=== PATIENT | male | born 1970 | race Caucasian/White ===

== ENCOUNTER 2017-06-23 02:22 | Emergency (ER) | payer BC, SELFPAY ==
[2017-06-23] VITALS (7 sets, daily range): BP systolic 118–178; BP diastolic 72–98; PULSE 74–87; RESP 14–17; TEMP 36.4; O2SAT 97–99; BMI 35.2
--- NOTE | 2017-06-23 02:39 | EKG12_ITS ---
Test Reason : CP Blood Pressure : / mmHG Vent. Rate : 081 BPM Atrial Rate : 081 BPM P-R Int : 222 ms QRS Dur : 100 ms QT Int : 380 ms P-R-T Axes : 059 -52 034 degrees QTc Int : 441 ms Sinus rhythm with 1st degree A-V block Left axis deviation Low voltage QRS (limb leads) Poor R wave progression Abnormal ECG Confirmed by ALFA SCOTT, ALOK ([id number]), design editor MELODY SOUSA ([id number]) on 06/25/2017 1:18:47 PM Referred By: BRODY Confirmed By:ALOK GRIMM MD
[2017-06-23] MEDS: Aspirin 81 MG TAB.CHEW 324 MG PO (02:52)
--- NOTE | 2017-06-23 03:01 | RAD_ITS ---
STUDY: X-RAY CHEST REASON FOR EXAM: Male, 47 years old. Chest pain. TECHNIQUE: PA and lateral chest. COMPARISON: June 27, 2011. FINDINGS: The lungs are clear and expanded. There is no demonstrated pleural abnormality. Normal size heart. Normal mediastinum and evon. Normal visualized pulmonary arteries. Normal visualized aortic arch and descending thoracic aorta. Normal visualized thoracic spine. Normal visualized ribs, clavicles, and shoulders. There is no demonstrated abnormality of the visualized soft tissue structures of the upper abdomen. RAD/Chest PA and Lateral IMPRESSION: Normal x-ray examination of the chest. Electronically Signed: Kojo Elmore MD at 3:24 EST , Service support ,
[2017-06-23 03:05] LABS: Absolute Lymphocyte Count 3.51 X10^3/ul (0.83-4.51); Absolute Neutrophil Count 3.2 X10^3/uL (2.0-7.7); Basophil# 0.06 X10^3/uL; Basophil% 0.8 % (0-1); Eosinophil# 0.29 X10^3/uL; Eosinophils% 3.7 % (0-5); Hematocrit 45.8 % (40-54); Hemoglobin 15.7 g/dl (13.0-16.5); Lymphocyte # 3.51 X10^3/ul (4.0); Lymphocyte % 44.4 % (19-41); Mean Corp Hgb Conc 34.3 g/gl (32-36); Mean Corpuscular Hgb 28.4 pg (27.0-32.0); Mean Corpuscular Volume 82.8 fL (80-94); Monocyte# 0.78 X10^3/uL; Monocyte% 9.9 % (0-10); Neutrophil # 3.22 X10^3/uL (2.7-7.7); Neutrophil % 40.7 % (47-70); Platelet Count 249 K/mm3 (150-450); RBC Distribution Width CV 12.9 % (11.6-14.6); RBC Distribution Width SD 38.6 fl (35.1-43.9); Red Blood Count 5.53 M/mm3 (4.6-6.2); White Blood Count 7.9 K/mm3 (4.4-11.0)
[2017-06-23 03:06] LABS: POSITIVE COUNT NO; POSITIVE DIFFERENTIAL NO; POSITIVE MORPHOLOGY NO
[2017-06-23 03:10] LABS: Prothrombin Time (Protime)PT. 12.3 SECONDS (11.7-14.9)
[2017-06-23 03:11] LABS: Anion Gap 8 (5-15); BUN 16 mg/dL (7-18); BUN/Creat Ratio 14.2 RATIO (10-20); Chloride 100 mmol/L (98-107); Creatinine, Serum 1.13 mg/dL (0.70-1.30); EST Glomerular Filtration Rate 74 mL/min (>60); Est Glom Filt Rate - Afr Amer 89 mL/min (>60); Estimated Creatinine Clearance 82.55 ml/min; Glucose 355 mg/dL (74-106); Potassium 3.8 mmol/L (3.5-5.1); Sodium Level 136 mmol/L (136-145)
[2017-06-23 03:17] LABS: D-Dimer Quantitative (DVT/PE) < 0.27 FEU/ug/m (0.27-0.49)
--- NOTE | 2017-06-23 03:25 | ED.VISSUMM ---
- ER Visit Summary Date of Service: 06/23/17 Chief Complaint: [] Chest pain History of Present Illness: The patient is a 47 M [] complaining of left-sided chest pain without radiation. Patient denies diaphoresis. Patient denies shortness of breath. Reports symptoms started yesterday intermittently. Reports brief episodes of chest pain every 30 minutes. He reports waking up from sleep at 1:30 AM today approximately 2 hours ago with continuous chest pain without radiation. He reports having a negative stress test in 2010. Denies any known cardiac disease. Does report a history of hypertension, diabetes, cholesterol. Reports compliance with all his medication including the treatment for hypertension diabetes and hypercholesterolemia. Denies any DVT or PE risk factors. Denies smoking. Pain is 4 out of 10. Physical Examination: [] Afebrile, vital signs stable. Cardiovascular exam is regular rate and rhythm. Lungs are clear to auscultation. Abdomen is soft and nontender. No lower extremity edema. Test Results: [] CBC, BMP, troponin within normal limits. D-dimer negative. INR 1.0. EKG shows normal sinus rhythm, rate of 81 without ectopy or ischemic changes. Unchanged from previous EKG. Chest x-ray: Negative. The troponin: Negative. Repeat EKG: Normal sinus rhythm, rate of 69 without ischemic changes. Unchanged from previous EKG. Emergency Department Course and Treatment: [] ADDY risk score: 1 out of 7. Patient given aspirin and nitroglycerin upon arrival. Patient reports improvement after nitroglycerin. Patient reports complete resolution of chest pain. He did request a medication for headache after nitroglycerin. He was provided 800 mg orally of ibuprofen. Patient was counseled regarding his diagnostic and laboratory findings. He represents a very low risk for cardiac event based off his ADDY risk score and current workup and evaluation. Patient is amenable to discharge with instructions for close follow-up with his PCP to schedule an outpatient stress test. Patient was explicitly instructed to return should he have any further discomfort. Treatment Plan: [] Follow-up with PCP, set up outpatient stress test. Disposition: [] Discharge, stable. Impression: [] Chest pain, unknown etiology This note was generated with [employer] software. It may contain incorrect words, spelling, and punctuation that were not noted in review of the chart prior to signing ED Disposition - Plan for ED Patient: Chief Complaint: Chest Pain Referrals: Olivier Vigil MD [Primary Care Provider] -
[2017-06-23] MEDS: Ibuprofen 400 MG Tablet 800 MG PO (04:16)
--- NOTE | 2017-06-23 04:20 | ED.RN ---
PT STATES PAIN DOWN FROM 5/10 TO 2/10, DR. SKINNER MADE AWARE.
--- NOTE | 2017-06-23 04:21 | EKG12_ITS ---
Test Reason : REPEAT Blood Pressure : / mmHG Vent. Rate : 069 BPM Atrial Rate : 069 BPM P-R Int : 216 ms QRS Dur : 098 ms QT Int : 384 ms P-R-T Axes : 047 -46 017 degrees QTc Int : 411 ms Sinus rhythm with 1st degree A-V block Left axis deviation Low voltage QRS (limb leads) Poor R wave progression Abnormal ECG Confirmed by ALFA SCOTT, ALOK ([id number]), society editor MELODY SOUSA ([id number] on 06/25/2017 1:19:17 PM Referred By: BRODY Confirmed By:ALOK GRIMM MD
--- NOTE | 2017-06-23 05:01 | ED.DEP ---
ED Disposition - Plan for ED Patient: Disposition: Home or Assisted Living Chief Complaint: Chest Pain Instructions: ED Chest Pain Atypical Unkn Cause Referrals: Olivier Vigil MD [Primary Care Provider] - Additional Instructions: Speak with your physician about setting up an outpatient stress test.
--- NOTE | 2017-06-23 05:17 | ED.RN ---
IV DC'ED, CATHETER INTACT, SMALL GAUZE DRESSING PLACED. DISCHARGE INSTRUCTIONS GIVEN TO AND REVIEWED WITH PATIENT, PATIENT DENIES QUESTIONS OR CONCERNS AND VOICES UNDERSTANDING OF DISCHARGE INSTRUCTIONS. PT AMBULATES OUT OF ROOM WITHOUT DIFFICULTY.
== END 2017-06-23 05:18 | disposition home or self-care (01) ==
PROVIDERS: Emergency Provider Emergency Medicine; Family Provider Family Medicine; PCP Family Medicine
DX: R07.9 Chest pain, unspecified (principal); E11.9 Type 2 diabetes mellitus without complications; I10 Essential (primary) hypertension; E78.00 Pure hypercholesterolemia, unspecified
CPT/HCPCS: 71046; 80048; 84484; 85025; 85379; 85610; 93005; 99285; A4216

== ENCOUNTER → 2018-01-02 15:17 | Outpatient (CLI) | payer BC, SELFPAY | PROVIDERS: Family Provider Family Medicine; PCP Family Medicine; Visit Provider Family Medicine | DX: K57.92 Diverticulitis of intestine, part unspecified, without perforation or abscess without bleeding (principal) | CPT/HCPCS: 74177; Q9967 ==

== ENCOUNTER → 2018-01-29 08:57 | Outpatient (CLI) | payer BC, SELFPAY ==
[2018-01-29 10:08] LABS: Absolute Lymphocyte Count 2.36 X10^3/ul (0.83-4.51); Basophil# 0.03 X10^3/uL; Basophil% 0.5 % (0-1); Eosinophil# 0.19 X10^3/uL; Eosinophils% 3.1 % (0-5); Hematocrit 42.9 % (40-54); Hemoglobin 13.8 g/dl (13.0-16.5); Lymphocyte # 2.36 X10^3/ul (4.0); Lymphocyte % 38.9 % (19-41); Mean Corp Hgb Conc 32.2 g/gl (32-36); Mean Corpuscular Hgb 27.7 pg (27.0-32.0); Mean Platelet Vol. 10.3 fl (6.2-12.0); Monocyte# 0.47 X10^3/uL; Monocyte% 7.7 % (0-10); Neutrophil # 3.01 X10^3/uL (2.7-7.7); Neutrophil % 49.6 % (47-70); Platelet Count 221 K/mm3 (150-450); RBC Distribution Width CV 13.1 % (11.6-14.6); RBC Distribution Width SD 41.4 fl (35.1-43.9); Red Blood Count 4.99 M/mm3 (4.6-6.2); White Blood Count 6.1 K/mm3 (4.4-11.0)
[2018-01-29 10:20] LABS: POSITIVE COUNT NO; POSITIVE DIFFERENTIAL NO; POSITIVE MORPHOLOGY NO
[2018-01-29 10:33] LABS: ALB/GLOB Ratio 0.8 RATIO (0.9-2.4); AST(SGOT) 13 U/L (15-37); Alanine Aminotransfer ALT/SGPT 32 U/L (16-61); Albumin, Serum 3.4 g/dL (3.2-5.0); Alkaline Phosphatase 59 U/L (45-117); Anion Gap 8 (5-15); BUN 11 mg/dL (7-18); BUN/Creat Ratio 11.1 RATIO (10-20); Calcium,Total 8.5 mg/dL (8.5-10.1); Chloride 107 mmol/L (98-107); Cholesterol 107 mg/dL (200); Creatinine, Serum 0.99 mg/dL (0.70-1.30); EST Glomerular Filtration Rate 85 mL/min (>60); Est Glom Filt Rate - Afr Amer 103 mL/min (>60); Glucose 133 mg/dL (74-106); High Density Lipoprotein 39 mg/dL; Potassium 4.3 mmol/L (3.5-5.1); Protein, Total 7.4 g/dL (6.4-8.2); Sodium Level 139 mmol/L (136-145); Thyroid Stim Hormone (TSH) 1.49 uIU/mL (0.358-3.74); Triglycerides 108 mg/dL; Very Low Density Lipoprotein 22 mg/dL (5-40)
== END ==
PROVIDERS: Family Provider Family Medicine; PCP Family Medicine; Visit Provider Family Medicine
DX: E11.9 Type 2 diabetes mellitus without complications (principal); K57.92 Diverticulitis of intestine, part unspecified, without perforation or abscess without bleeding
CPT/HCPCS: 36415; 80053; 80061; 84443; 85025

== ENCOUNTER → 2019-02-21 08:31 | Outpatient (CLI) | payer OTHER, SELFPAY ==
[2017-06-23 02:23] VITALS: BMI 35.2
[2019-02-21 10:35] LABS: ALB/GLOB Ratio 1.1 RATIO (0.9-2.4); AST(SGOT) 15 U/L (15-37); Alanine Aminotransfer ALT/SGPT 38 U/L (16-61); Alkaline Phosphatase 74 U/L (45-117); Anion Gap 5 (5-15); BUN 14 mg/dL (7-18); BUN/Creat Ratio 14.7 RATIO (10-20); Calcium,Total 8.9 mg/dL (8.5-10.1); Chloride 106 mmol/L (98-107); Cholesterol 117 mg/dL (200); Creatinine, Serum 0.95 mg/dL (0.70-1.30); EST Glomerular Filtration Rate 89 mL/min (>60); Est Glom Filt Rate - Afr Amer 108 mL/min (>60); Globulin 3.6 g/dL (2.2-4.2); Glucose 136 mg/dL (74-106); High Density Lipoprotein 41 mg/dL; Potassium 4.9 mmol/L (3.5-5.1); Protein, Total 7.6 g/dL (6.4-8.2); Sodium Level 138 mmol/L (136-145); Triglycerides 129 mg/dL; Very Low Density Lipoprotein 26 mg/dL (5-40)
== END ==
PROVIDERS: Family Provider Family Medicine; PCP Family Medicine; Referring Provider Family Medicine; Visit Provider Family Medicine
DX: E11.9 Type 2 diabetes mellitus without complications (principal)
CPT/HCPCS: 36415; 80053; 80061

== ENCOUNTER → 2019-03-27 09:23 | Outpatient (CLI) | payer OTHER, SELFPAY ==
[2017-06-23 02:23] VITALS: BMI 35.2
[2019-03-27 09:26] LABS: Bacteria 0 SEEN /hpf (None Seen); Mucous, Urine 0 SEEN /hpf (<or=2+); Red Blood Cells-Urine 0 SEEN /hpf (0-5); Squamous Epithelial Cells - UA 0 SEEN /hpf (0-5); White Blood Cells 0 SEEN /hpf (0-5)
[2019-03-27 10:25] LABS: Color, Urine Yellow (Yellow); Glucose, Dipstick 1000 mg/dl (Normal); Ketone-Dipstick Negative (Negative); Leukocyte Esterase-Dipstick Negative /ul (Negative); Nitrite-Dipstick Negative (Negative); Occult Blood-Urine Negative /ul (Negative); Protein-Dipstick Negative (Negative); Specific Gravity, Urine 1.005 (1.002-1.030); Urine Bilirubin Dipstick Negative (Negative); Urine Clarity Clear (Clear); Urine Urobilinogen Normal (Normal); Urine pH 6.5 (5.0 - 8.0)
[2019-03-27 11:48] LABS: Chlamydia Trachomatis by PCR Negative (Negative); Probe Check PASS; Sample Adequacy Control PASS; Specimen Processing Control PASS
== END ==
PROVIDERS: Family Provider Family Medicine; PCP Family Medicine; Referring Provider Family Medicine; Visit Provider Nurse Practitioner Family
DX: N34.2 Other urethritis (principal)
CPT/HCPCS: 81001; 87086; 87491

== ENCOUNTER → 2020-02-02 09:18 | Outpatient (CLI) | payer BC, SELFPAY ==
[2017-06-23 02:23] VITALS: BMI 35.2
[2020-02-02 10:18] LABS: Vitamin B12 349 pg/mL (211-911)
[2020-02-02 10:26] LABS: AST(SGOT) 17 U/L (15-37); Alanine Aminotransfer ALT/SGPT 34 U/L (16-61); Albumin, Serum 3.6 g/dL (3.2-5.0); Alkaline Phosphatase 60 U/L (45-117); Anion Gap 6 (5-15); BUN 12 mg/dL (7-18); BUN/Creat Ratio 12.9 RATIO (10-20); Calcium,Total 8.8 mg/dL (8.5-10.1); Chloride 109 mmol/L (98-107); Cholesterol 115 mg/dL (200); Creatinine, Serum 0.93 mg/dL (0.70-1.30); EST Glomerular Filtration Rate 91 mL/min (>60); Est Glom Filt Rate - Afr Amer 110 mL/min (>60); Globulin 3.5 g/dL (2.2-4.2); Glucose 125 mg/dL (74-106); High Density Lipoprotein 44 mg/dL; PSA,Total - Annual Screen 0.69 ng/mL (0.00-4.00); Potassium 4.2 mmol/L (3.5-5.1); Protein, Total 7.1 g/dL (6.4-8.2); Sodium Level 142 mmol/L (136-145); Thyroid Stim Hormone (TSH) 2.18 uIU/mL (0.358-3.74); Triglycerides 106 mg/dL; Very Low Density Lipoprotein 21 mg/dL (5-40)
[2020-02-04 12:08] LABS: Testosterone, Free 8.81 ng/dL (5.00-21.00)
[2020-02-04 15:17] LABS: Testosterone, % Free 2.85 % (1.50-4.20); Testosterone, Total 309 ng/dL (264-916)
== END ==
PROVIDERS: PCP Family Medicine; Referring Provider Family Medicine; Visit Provider Family Medicine
DX: I10 Essential (primary) hypertension (principal); E78.5 Hyperlipidemia, unspecified; Z12.5 Encounter for screening for malignant neoplasm of prostate
CPT/HCPCS: 36415; 80053; 80061; 82607; 84153; 84402; 84403; 84443; G0103

== ENCOUNTER 2020-03-25 12:56 | Observation (INO) | payer BC, SELFPAY ==
[2020-03-25] VITALS (7 sets, daily range): BP systolic 135–160; BP diastolic 72–84; PULSE 65–85; RESP 14–20; TEMP 36.4–36.8; O2SAT 95–98; BMI 36.0; BMI 35.9
--- NOTE | 2020-03-25 13:13 | RAD_ITS ---
STUDY: X-RAY CHEST REASON FOR EXAM: Male, 50 years old. SHORTNESS OF BREATH X SEVERAL DAYS, INCREASING, CHEST PAIN L SIDE, DIZZINESS TECHNIQUE: Single AP portable view of the chest. COMPARISON: Comparison is made with prior study dated 06/23/2017. FINDINGS: EKG electrodes are seen. Hyperinflation. The lungs are clear. There is no demonstrated pleural abnormality. Normal size heart. Normal mediastinum and evon. Normal visualized pulmonary arteries. Normal visualized aortic arch and descending thoracic aorta. Normal visualized thoracic spine. Normal visualized ribs, clavicles, and shoulders. There is no demonstrated abnormality of the visualized soft tissue structures of the upper abdomen. RAD/Chest 1 View (Portable) IMPRESSION: Hyperinflation. Electronically Signed: Jose Marley, at 13:52 EST , Service support ,
--- NOTE | 2020-03-25 13:13 | EKG12_ITS ---
Test Reason : CP Blood Pressure : / mmHG Vent. Rate : 074 BPM Atrial Rate : 074 BPM P-R Int : 200 ms QRS Dur : 104 ms QT Int : 378 ms P-R-T Axes : 046 -45 018 degrees QTc Int : 419 ms Sinus rhythm with frequent Premature ventricular complexes Left axis deviation Poor R wave progression Inferior ME, age undetermined, cannot be excluded Abnormal ECG Confirmed by ALFA SCOTT, ALOK ([id number]), technical editor FLORENTINO CESPEDES ([id number]) on 03/26/2020 11:08:50 AM Referred By: LAXMI Confirmed By:ALOK GRIMM MD
--- NOTE | 2020-03-25 13:14 | ED.DCSUM_ITS ---
History of Present Illness Chief Complaint: Chest Pain Informant: Patient Onset: Today Current Severity: Mild Maximum Severity: Moderate Narrative: Patient presents secondary to dyspnea. Last weekend he states he felt very short of breath, worsened with exertion. He had no other URI symptoms at that time. Earlier this week he seemed to be feeling much better. Today he became more short of breath again with intermittent dizziness/lightheadedness and a burning sensation in his anterior chest with occasional sharp pain in his back. He does note significant shortness of breath with climbing a flight of steps. He states this has been gradually getting worse for quite some time. He denies any personal history of cardiac disease. Last stress test was approximately 8 or 9 years ago. He does have family history as well as diabetes, hypertension, and high cholesterol. - Past Medical History (1) Diabetes Status: Chronic (2) Hypertension Status: Chronic (3) High cholesterol Status: Chronic Past Medical History - Allergies and Home Meds Allergies/Adverse Reactions: Allergies No Known Allergies Allergy (Verified 06/23/17 02:25) Primary Care Physician: Olivier Vigil MD [Primary Care Provider] - Prior records reviewed: Yes Surgical History: vasectomy Lives: With Family Smoking Status: Never smoker Review of Systems General: Denies: Chills, Fever Eyes: Denies: Visual changes - bilaterally ENT: Denies: Bilateral ear pain Cardiovascular: Reports: Chest pain Respiratory: Reports: Dyspnea. Denies: Cough Gastrointestinal: Denies: Abdominal pain Musculoskeletal: Denies: Extremity Pain Neurological: Denies: Headache Hematologic: Denies: Easy bruising, Easy bleeding Allergy: Denies: Uticaria Physical Exam Vital Signs/Narrative: Vital Signs Temp Pulse Resp BP Pulse Ox 03/25/20 12:58 97.7 F L 82 20 H 160/84 H 97 Inital Vital Signs reviewed: Yes General: Well nourished, Well developed Head: Normocephalic ENT: Moist mucous membranes Neck: Supple Cardiovascular: Regular rate, Regular rhythm Respiratory: No distress, CTA bilaterally Abdomen: Soft, Nontender Extremities: Nontender, No edema Skin: Normal color Neurological: Alert, Oriented x3 Psychological: Normal affect Diagnostic/Tx/Re-eval Impressions Chest X-Ray 03/25/20 13:13 IMPRESSION: Hyperinflation. Electronically Signed: Jose Marley, at 13:52 EST , Service support , 03/25/20 13:13 Chest 1 View (Portable) [RAD] Stat Laboratory Results 03/25/20 03/25/20 03/25/20 13:00 13:03 13:03 WBC 8.2 RBC 5.31 Hgb 15.1 Hct 45.8 MCV 86.3 MCH 28.4 MCHC 33.0 RDW Std Deviation 39.7 RDW Coeff of Janelle 12.7 Plt Count 271 MPV 10.0 Immature Gran % (Auto) 0.500 Neut % (Auto) 49.7 Lymph % (Auto) 37.3 Letcher % (Auto) 9.2 Eos % (Auto) 2.7 Baso % (Auto) 0.6 Absolute Neuts (auto) 4.1 Absolute Lymphs (auto) 3.05 Nucleated RBC % 0 D-Dimer Quant (PE/DVT) <= 0.27 Sodium 140 Potassium 4.2 Chloride 106 Carbon Dioxide 30.0 Anion Gap 4 L BUN 12 Creatinine 1.15 Estim Creat Clear Calc 80.94 Est GFR (MDRD) Af Amer 86 Est GFR (MDRD) Non-Af 71 BUN/Creatinine Ratio 10.4 Glucose 169 H Calcium 9.6 Troponin I < 0.015 B-Natriuretic Peptide 03/25/20 13:03 WBC RBC Hgb Hct MCV MCH MCHC RDW Std Deviation RDW Coeff of Janelle Plt Count MPV Immature Gran % (Auto) Neut % (Auto) Lymph % (Auto) Letcher % (Auto) Eos % (Auto) Baso % (Auto) Absolute Neuts (auto) Absolute Lymphs (auto) Nucleated RBC % D-Dimer Quant (PE/DVT) Sodium Potassium Chloride Carbon Dioxide Anion Gap BUN Creatinine Estim Creat Clear Calc Est GFR (MDRD) Af Amer Est GFR (MDRD) Non-Af BUN/Creatinine Ratio Glucose Calcium Troponin I B-Natriuretic Peptide 27.1 - EKG Initial EKG Interpretation: Sinus Rhythm - Sinus at 74 with PVCs. No acute ischemia. - Medical Decision Making Patient given aspirin on arrival. Blood work at this time is unremarkable to negative D-dimer negative troponin. He does have multiple risk factors as well as family history. His symptoms are concerning. I will speak with hospitalist regarding observation overnight for cycling of cardiac enzymes and probable stress test in the morning. ED Disposition - Plan for ED Patient: Disposition: Acute Care [facility] Diagnosis: Chest pain Referrals: Olivier Vigil MD [Primary Care Provider] -
--- NOTE | 2020-03-25 13:22 | ED.RN ---
PER DR ARENAS ISOLATION NOT NEEDED
[2020-03-25] MEDS: Aspirin 81 MG TAB.CHEW 324 MG PO (13:23)
--- NOTE | 2020-03-25 13:33 | ED.RN ---
PER DR ARENAS, NO ISOLATION NEEDED
[2020-03-25 13:34] LABS: Absolute Lymphocyte Count 3.05 X10^3/uL (0.83-4.51); Absolute Neutrophil Count 4.1 X10^3/uL (2.0-7.7); Basophil# 0.05 X10^3/uL; Basophil% 0.6 % (0-1); D-Dimer Quantitative (DVT/PE) <= 0.27 FEU/ug/m (0.27-0.49); Eosinophil# 0.22 X10^3/uL; Eosinophils% 2.7 % (0-5); Hematocrit 45.8 % (40-54); Hemoglobin 15.1 g/dL (13.0-16.5); Lymphocyte # 3.05 X10^3/ul (4.0); Lymphocyte % 37.3 % (19-41); Mean Corpuscular Hgb 28.4 pg (27.0-32.0); Mean Corpuscular Volume 86.3 fL (80-94); Monocyte# 0.75 X10^3/uL; Monocyte% 9.2 % (0-10); NRBC Flagged by Analyzer 0 % (0-5); Neutrophil # 4.07 X10^3/uL (2.7-7.7); Neutrophil % 49.7 % (47-70); Platelet Count 271 K/mm3 (150-450); RBC Distribution Width CV 12.7 % (11.6-14.6); RBC Distribution Width SD 39.7 fl (35.1-43.9); Red Blood Count 5.31 M/mm3 (4.6-6.2); White Blood Count 8.2 K/mm3 (4.4-11.0)
[2020-03-25 13:52] LABS: BNP,B-Type NATRIURETIC PEPTIDE 27.1 pg/mL (0-100)
[2020-03-25 13:56] LABS: Anion Gap 4 (5-15); BUN 12 mg/dL (7-18); BUN/Creat Ratio 10.4 RATIO (10-20); Calcium,Total 9.6 mg/dL (8.5-10.1); Chloride 106 mmol/L (98-107); Creatinine, Serum 1.15 mg/dL (0.70-1.30); EST Glomerular Filtration Rate 71 mL/min (>60); Est Glom Filt Rate - Afr Amer 86 mL/min (>60); Estimated Creatinine Clearance 80.94 ml/min; Glucose 169 mg/dL (74-106); Potassium 4.2 mmol/L (3.5-5.1); Sodium Level 140 mmol/L (136-145)
--- NOTE | 2020-03-25 14:20 | NURSING ---
DR WALTERS FOR DR ARENAS
--- NOTE | 2020-03-25 14:29 | NURSING ---
PCU OBS FLORENTINO WALTERS
--- NOTE | 2020-03-25 14:40 | HP.PCM_ITS ---
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 Dyspnea has been exertional at times and intermittent. Has been associated with some burning in his chest. Today, patient was sitting up having breakfast and f elt dizzy. The pain radiates to his back. Denied any diaphoresis, nausea, vomiting, diarrhea. 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 She gets checked weekly and her most recent evaluation was negative. Patient's daughter at home is not sick. [] Past Medical History Past Medical History (Chronic Problems): Chronic Problems Diabetes (Chronic) Hypertension (Chronic) High cholesterol (Chronic) Allergies No Known Allergies Allergy (Verified 06/23/17 02:25) Home Medications: Ambulatory Orders Medication Instructions Recorded Atorvastatin Calcium [Lipitor] 20 mg PO DAILY 06/23/17 Metformin HCl [Glucophage Xr] 750 mg PO BID 06/23/17 Aspirin E.C. [Ecotrin] 81 mg PO DAILY@0630 03/25/20 Glimepiride [Amaryl] 4 mg PO DAILY 03/25/20 Lisinopril [Zestril] 10 mg PO DAILY 03/25/20 Pioglitazone [Actos] 15 mg PO DAILY 03/25/20 Surgical History: vasectomy Lives: With Family Smoking Status: Never smoker - *Family History Paternal History Items: Heart Disease Review of Systems Constitutional: Denies: Anorexia, Chills, Fever, Night Sweats Eyes: Denies: Blurred vision, Double vision HEENT: Denies: Head Aches, Sinus Congestion, Sinus Drainage Cardiovascular: Reports: Chest Pain. Denies: Palpitations Respiratory: Reports: Shortness of breath upon exertion Gastrointestinal: Denies: Abdominal Pain, Diarrhea, Nausea, Vomiting Musculoskeletal: Denies: Joint Pain, Joint Tenderness Hematologic/ Lymphatic: Denies: Hx of blood clot Comment: All review of systems were negative except as mentioned above in the history of present illness and the other review of systems. VTE Information - Inpt Only VTE Present on Admission: No VTE Mechan Device Prophylaxis: None VTE Pharm Prophylaxis ordered?: No Reason prophylaxis not ordered:: Treatment Not Indicated Patient Problems: Active and Suspected Problems Chest pain (Acute) - Physical Exam Vitals/I&O's: Vital Signs Temp Pulse Resp BP Pulse Ox 36.5 C L 82 20 H 160/84 H 97 03/25/20 12:58 03/25/20 12:58 03/25/20 12:58 03/25/20 12:58 03/25/20 12:58 Oxygen Delivery Method Room Air Weight: 117.2 kg Body Mass Index (BMI) 36.0 General: Alert, Cooperative, No apparent distress HEENT: Atraumatic, Normocephalic Neck: No Nodes, Thyroid Normal Size and Texture Lungs: Clear to auscultation, Normal air movement, No rhonchi, No wheeze, No rales Cardiovascular: Regular rate, Regular Rhythm, Normal S1, Normal S2, No murmurs Abdomen: Bowel Sounds Present, Soft, Non Tender, Non-Distended, No Hepato- splenomegaly Extremities: No edema, No Calf Tenderness Skin: No rashes, No breakdown Musculoskeletal: No Tenderness to Palpation of Joints or Extremities, No Muscle Wasting Psych/Mental Status: Normal Affect, Appropriate Laboratory Results 03/25/20 13:00: Sodium 140, Potassium 4.2, Chloride 106, Carbon Dioxide 30.0, Anion Gap 4 L, BUN 12, Creatinine 1.15, Estim Creat Clear Calc 80.94, Est GFR (MDRD) Af Amer 86, Est GFR (MDRD) Non-Af 71, BUN/Creatinine Ratio 10.4, Glucose 169 H, Calcium 9.6, Troponin I < 0.015 03/25/20 13:03: WBC 8.2, RBC 5.31, Hgb 15.1, Hct 45.8, MCV 86.3, MCH 28.4, MCHC 33.0, RDW Std Deviation 39.7, RDW Coeff of Janelle 12.7, Plt Count 271, MPV 10.0, Immature Gran % (Auto) 0.500, Neut % (Auto) 49.7, Lymph % (Auto) 37.3, Campbell % (Auto) 9.2, Eos % (Auto) 2.7, Baso % (Auto) 0.6, Absolute Neuts (auto) 4.1, Absolute Lymphs (auto) 3.05, Nucleated RBC % 0 03/25/20 13:03: D-Dimer Quant (PE/DVT) <= 0.27 03/25/20 13:03: B-Natriuretic Peptide 27.1 EKG reviewed and showed normal sinus rhythm with frequent PVCs. Telemetry reviewed and showed PVCs with compensatory pause. Patient was asymptomatic during these events. Chest x-ray personally reviewed and showed normal airways without any infiltrate, edema. Assessment/Plan All Active Problems Chest pain (Acute) PVC (premature ventricular contraction) (Acute) 1. Chest pain: ADDY score of 1, Shweta score of 81. Patient has risk factors with family history, diabetes, hypertension hyperlipidemia. Plan is to get a treadmill stress echocardiogram on the . Patient stated that he would be able to complete that test. Patient did receive aspirin in the emergency room and will continue on the floor. Cycle troponins, check fasting lipid panel in the morning. Patient also has some atypical symptoms primarily his symptoms were more dyspnea associated but did have chest pain. 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 2. Premature ventricular contractions: Patient asymptomatic but did have frequent PVCs. Potassium is normal, check magnesium level and replace if low. 3. Diabetes mellitus type 2: Continue with glimepiride and Metformin. Add sliding scale insulin. Check A1c. 4. VTE prophylaxis: Not indicated as patient is observation status. OBSV E&M: [id number] Initial observation care L2
--- NOTE | 2020-03-25 18:10 | EKG12_ITS ---
Test Reason : CP ADMIT Blood Pressure : / mmHG Vent. Rate : 073 BPM Atrial Rate : 073 BPM P-R Int : 200 ms QRS Dur : 104 ms QT Int : 392 ms P-R-T Axes : 040 -34 009 degrees QTc Int : 431 ms Sinus rhythm with frequent Premature ventricular complexes Left axis deviation Poor R- wave progression Abnormal ECG Confirmed by ALFA SCOTT, ALOK ([id number]), pictures editor ELADIO PORTER ([id number]) on 03/29/2020 1:30:29 PM Referred By: DR WALTERS Confirmed By:ALOK GRIMM MD
[2020-03-25 19:15] LABS: Bedside Glucose 159 mg/dL (70-110)
[2020-03-25 19:24] LABS: Magnesium 2.2 mg/dL (1.6-2.6)
[2020-03-25] MEDS: Atorvastatin Calcium 20 MG Tablet PO (22:03)
[2020-03-25 22:16] LABS: Bedside Glucose 250 mg/dL (70-110)
[2020-03-26 03:00] VITALS: PULSE 69
[2020-03-26 04:00] VITALS: BP 115/71; PULSE 78; RESP 16; TEMP 36.5; O2SAT 97
--- NOTE | 2020-03-26 05:00 | EKG12_ITS ---
Test Reason : AM EKG Blood Pressure : / mmHG Vent. Rate : 066 BPM Atrial Rate : 066 BPM P-R Int : 198 ms QRS Dur : 102 ms QT Int : 406 ms P-R-T Axes : 049 -39 013 degrees QTc Int : 425 ms Normal sinus rhythm Left axis deviation Poor R- wave progression Abnormal ECG Confirmed by ALFA SCOTT, ALOK ([id number]), editor dictionary ELADIO PORTER ([id number]) on 03/29/2020 1:29:17 PM Referred By: ROMEO Confirmed By:ALOK GRIMM MD
[2020-03-26 06:09] VITALS: BP 121/61; PULSE 74; RESP 16; TEMP 36.6; O2SAT 98
[2020-03-26] MEDS: Aspirin E.C. 81 MG Tablet PO (06:13)
[2020-03-26] MEDS: 0.9% Saline Lock 10 ML Syringe IV (06:13)
[2020-03-26] MEDS: Lisinopril 10 MG Tablet PO (06:13)
[2020-03-26 06:52] LABS: Cholesterol 120 mg/dL (200); High Density Lipoprotein 38 mg/dL; Thyroid Stim Hormone (TSH) 2.02 uIU/mL (0.358-3.74); Triglycerides 127 mg/dL; Very Low Density Lipoprotein 25 mg/dL (5-40)
[2020-03-26 06:56] LABS: Bedside Glucose 157 mg/dL (70-110)
[2020-03-26 07:16] VITALS: PULSE 77
[2020-03-26 07:16] LABS: Hemoglobin A1c 7.3 % (3.8-5.6)
--- NOTE | 2020-03-26 10:36 | STRESSREP ---
Stress Test Report Date: Procedure: Exercise tolerance test/imaging study Indications: Chest pain: Shortness of breath Consent: Per the patient Procedure: The patient exercised on a Drew protocol for 5 minutes and 33 seconds completing Stage I and 2 minutes and 33 seconds of Stage II achieving a peak heart rate of 148 bpm (87% predicted maximal heart rate) with a peak blood pressure 188/82 mmHg and a peak MET capacity of 7 METs. The baseline ECG demonstrated sinus rhythm; poor R wave progression; occasional PVC. The peak exercise ECG demonstrated no obvious ECG changes. There were occasional PVCs pretest and occasional PVCs/ventricular couplets during exercise and occasional PVCs during recovery. The functional capacity was considered average. There was no complaint of chest discomfort during exercise or recovery. The examination was discontinued secondary to dyspnea. Impression: 1. Technically adequate (percent predicted maximal heart rate greater than 85%) exercise tolerance test 2. Peak exercise ECG no obvious ECG changes 3. There were occasional PVCs pretest and occasional PVCs/ventricular couplets during exercise and occasional PVCs during recovery 4. Nuclear images pending Myocardial perfusion imaging study: Technique: The patient was injected with mCi of technetium 99m Cardiolite and subsequently rest SPECT Cardiolite nuclear imaging was obtained in the horizontal long, vertical long, and short axis views. The patient exercised on a Drew protocol for 5 minutes and 33 seconds completing Stage I and 2 minutes and 33 seconds of Stage II achieving a peak heart rate of 148 bpm (87% predicted maximal heart rate) with a peak blood pressure 188/82 mmHg and a peak MET capacity of 7 METs. The patient was injected with mCi of technetium 99m Cardiolite and subsequently stress SPECT Cardiolite nuclear imaging was obtained in the horizontal long, vertical long, and short axis views. A gated Cardiolite study at peak stress was obtained. Interpretation: Rest and stress SPECT Cardiolite nuclear imaging status post realignment, normalization, and attenuation correction, demonstrates the appearance at rest of a small area of subtle diminished tracer uptake in the mid/distal anteroseptal segments which status post stress appears to improve/normalize. There is similar type findings on the resting and stress polar map images. There is end systolic thickening and brightening. The gated Cardiolite study demonstrates myocardial thickening and inward wall motion. The reported LVEF is 65%. Impression: 1. Rest and stress SPECT Cardiolite nuclear imaging demonstrate myocardial perfusion changes at rest which appear to improve/normalize following stress appearing compatible shifting soft tissue attenuation/artifact with no myocardial perfusion changes considered diagnostic for associated stress-induced myocardial ischemia. 2. The gated Cardiolite study reports an LVEF of 65%. This note was generated with [email or web address] software. It may contain incorrect words, spelling, and punctuation that were not noted in checking the note before signing.
[2020-03-26 11:25] LABS: Bedside Glucose 113 mg/dL (70-110)
[2020-03-26] MEDS: Glimepiride 4 MG Tablet PO (11:46)
[2020-03-26] MEDS: Pioglitazone Hydrochloride 15 MG Tablet PO (11:46)
--- NOTE | 2020-03-26 12:10 | DCINST_ITS ---
- Discharge Diagnoses Current Active Problems: Current Active and Chronic Problems Diabetes (Chronic) Hypertension (Chronic) High cholesterol (Chronic) Chest pain (Acute) PVC (premature ventricular contraction) (Acute) You will use the following diet at home:: Calorie/Carbohydrate Controlled (specify 1200, 1400, etc) - 1800 anette / day, Cardiac Your food should be the consistency of: Regular Your liquids should be the consistency of: Regular/Thin Discharge Activity: Return to Normal Activity Additional Instructions: Talk to your doctor about having pulmonary function tests after you are discharged from the hospital. Allergies/Adverse Reactions: Allergies No Known Allergies Allergy (Verified 06/23/17 02:25) Medications to take at Discharge Atorvastatin Calcium [Lipitor] 20 mg PO DAILY 06/23/17 Metformin HCl [Glucophage Xr] 750 mg PO BID 06/23/17 Aspirin E.C. [Ecotrin] 81 mg PO DAILY@0630 03/25/20 Glimepiride [Amaryl] 4 mg PO DAILY 03/25/20 Lisinopril [Zestril] 10 mg PO DAILY 03/25/20 Pioglitazone [Actos] 15 mg PO DAILY 03/25/20 Primary Care Physician: Olivier Vigil MD [Primary Care Provider] - Please follow up with your Primary Care Physician in: 1-2 weeks Test Results: Test results from this visit will be discussed in further detail at your follow- up appointment, if applicable. Proposed Discharge Date: 03/26/20
--- NOTE | 2020-03-26 13:36 | DS.PCM_ITS ---
<Nate Yoon - Last Filed: 03/26/20 13:36> Discharge Date and Diagnosis - Problem List Patient Problems: Active and Suspected Problems Chest pain (Acute) PVC (premature ventricular contraction) (Acute) Date of Admission: 03/25/20 Date of Discharge: 03/26/20 - Primary Discharge Diagnosis Acute Problems: Active Problems Chest pain (Acute)-musculoskeletal Exertional dyspnea-suspected underlying lung disease Secondhand smoke exposure Type 2 diabetes, hypertension, hyperlipidemia - Secondary Discharge Diagnosis Chronic Problems: Chronic Problems Diabetes (Chronic) Hypertension (Chronic) High cholesterol (Chronic) Hospital Course and Treatment Imaging Results: 03/26/20 07:18 Nuclear Stress Test - Chemical [NM] Routine Impression: 1. Rest and stress SPECT Cardiolite nuclear imaging demonstrate myocardial perfusion changes at rest which appear to improve/normalize following stress appearing compatible shifting soft tissue attenuation/artifact with no myocardial perfusion changes considered diagnostic for associated stress-induced myocardial ischemia. 2. The gated Cardiolite study reports an LVEF of 65%. RAD/Chest 1 View (Portable) IMPRESSION: Hyperinflation. Operations: None Procedures: Stress test Summary of Care Provided: Hospital course: The patient is a 50 year old M with past medical history of type 2 diabetes, hypertension, hyperlipidemia, significant secondhand smoke exposure while growing up, who presented to the emergency room with complaints of exertional dyspnea and burning chest pain. Him to the emergency room was tested for COVID- 19 which was negative. He had a negative troponin, chest x-ray demonstrated hyperinflation of the lungs. EKG was unremarkable. He was admitted to the PCU for chest pain work-up. Troponin was cycled and remained negative. He underwent a stress test the following day which was negative for inducible ischemia. He had PVCs on telemetry. A1c was checked and was 7.3. Given his hyperinflation on chest x-ray and exertional dyspnea with significant secondhand smoke exposure during his life, I suspect he may have some underlying lung disease. I recommended that he follow-up with his PCP in 1 to 2 weeks in order to arrange to have pulmonary function testing as an outpatient. Patient was discharged home in stable condition. This patient was seen by Nate Yoon PA-C under the supervision of Doctor Woody. [] Patient Problems: Active and Suspected Problems Chest pain (Acute) PVC (premature ventricular contraction) (Acute) - Physical Exam Vitals/I&O's: Vital Signs Temp Pulse Resp BP Pulse Ox 97.9 F 77 16 121/61 H 98 03/26/20 06:09 03/26/20 07:16 03/26/20 06:09 03/26/20 06:09 03/26/20 06:09 Oxygen Delivery Method Room Air Weight: 250 lb Body Mass Index (BMI) 35.9 Intake and Output for Last 24 Hours 03/24/20 03/25/20 03/26/20 23:59 23:59 23:59 Intake Total 895 / 895 Balance 895 / 895 General: Alert, Oriented x3, Cooperative HEENT: Atraumatic, PERRLA, EOMI, Normocephalic Neck: Supple, No JVD, Negative Carotid Bruits Lungs: Clear to auscultation, Normal air movement Cardiovascular: Regular rate, No murmurs Abdomen: Bowel Sounds Present, Soft, Non Tender Extremities: No edema, Capillary Refill Less than 3 Seconds Skin: No rashes, No breakdown Musculoskeletal: No Tenderness to Palpation of Joints or Extremities Neurological: Cranial nerves II-XII grossly intact Psych/Mental Status: Normal Affect, Appropriate, Alert and oriented to time, place, person, mood and affect Laboratory Results 03/25/20 13:00: Sodium 140, Potassium 4.2, Chloride 106, Carbon Dioxide 30.0, Anion Gap 4 L, BUN 12, Creatinine 1.15, Estim Creat Clear Calc 80.94, Est GFR (MDRD) Af Amer 86, Est GFR (MDRD) Non-Af 71, BUN/Creatinine Ratio 10.4, Glucose 169 H, Calcium 9.6, Troponin I < 0.015 03/25/20 13:03: B-Natriuretic Peptide 27.1 03/25/20 14:40: COVID-19 (ALBERTO) Not Detected 03/25/20 18:44: POC Glucose 159 H 03/25/20 18:58: Magnesium 2.2 03/25/20 18:58: Troponin I < 0.015 03/25/20 21:33: Troponin I < 0.015 03/25/20 22:05: POC Glucose 250 H 03/26/20 05:11: Triglycerides 127, Cholesterol 120, LDL Cholesterol 57, VLDL Cholesterol 25, HDL Cholesterol 38 L, TSH 2.02 03/26/20 05:11: Hemoglobin A1c 7.3 H 03/26/20 06:49: POC Glucose 157 H 03/26/20 11:20: POC Glucose 113 H Discharge Diet: Low fat/ Low Cholesterol, 1800 Calorie Control Diet, 2000 mg Sodium Diet Discharge Activity: Return to Normal Activity Home Medications: Medications to take at Discharge Atorvastatin Calcium [Lipitor] 20 mg PO DAILY 06/23/17 Metformin HCl [Glucophage Xr] 750 mg PO BID 06/23/17 Aspirin E.C. [Ecotrin] 81 mg PO DAILY@0630 03/25/20 Glimepiride [Amaryl] 4 mg PO DAILY 03/25/20 Lisinopril [Zestril] 10 mg PO DAILY 03/25/20 Pioglitazone [Actos] 15 mg PO DAILY 03/25/20 Primary Care Physician: Olivier Vigil MD [Primary Care Provider] - Please follow up with your Primary Care Physician in: 1-2 weeks Disposition: Home Minutes spent on discharge:: 35 Patient Condition:: Stable Medical Necessity - Tobacco Use Smoking Status: Never smoker Meaningful Use Info Meaningful Use Diagnoses (Choose all that apply): None applicable <Paintsil,Mazon - Last Filed: 03/27/20 09:06> Discharge Date and Diagnosis - Primary Discharge Diagnosis Acute Problems: Active Problems Chest pain (Acute) PVC (premature ventricular contraction) (Acute) - Secondary Discharge Diagnosis Chronic Problems: Chronic Problems Diabetes (Chronic) Hypertension (Chronic) High cholesterol (Chronic) Hospital Course and Treatment Summary of Care Provided: This patient was seen in conjunction with MASSIEL Mike. I have independently interviewed and examined the patient and reviewed pertinent historical, laboratory, and other data. Please refer to MASSIEL Mike note for his patient's presentation, findings, and recommendations. I have reviewed and his note and concur with his documentation 50-year-old male with multiple cardiovascular risk factors including type II DM, hypertension, hyperlipidemia who comes in with complaints of shortness of breath and burning chest pain. Patient's work-up had included unremarkable EKG, and hyperinflation of the lungs, negative troponins. His COVID-19 test was negative. Patient was admitted to the PCU, his troponins were cycled and remained negative. He underwent a stress test that was negative. On the day of discharge, patient was seen and examined. We had a discussion with regards to the etiology of his progressive shortness of breath. I reassured him that it was unlikely to be secondary to his heart. I asked him to follow-up with his primary care doctor within 2 weeks. He was encouraged to keep himself hydrated. He was encouraged to discuss with his primary care doctor and get a lung function test done to evaluate his lungs. Physical Exam: Gen: Comfortble, not pale, not jaundiced CVS:HS I +II, regular, no murmurs RESP: CTA GI: BS present and normal, soft, nontender, no palpable organs EXT:No edema - Physical Exam Vitals/I&O's: Vital Signs Temp Pulse Resp BP Pulse Ox 97.9 F 77 16 121/61 H 98 03/26/20 06:09 03/26/20 07:16 03/26/20 06:09 03/26/20 06:09 03/26/20 06:09 Oxygen Delivery Method Room Air Weight: 113.398 kg Body Mass Index (BMI) 35.9 Intake and Output for Last 24 Hours 03/25/20 03/26/20 03/27/20 23:59 23:59 23:59 Intake Total 895 / 895 Balance 895 / 895 Laboratory Results 03/26/20 11:20: POC Glucose 113 H OBSV E&M: 29161 Observation care discharge
--- NOTE | 2020-03-26 14:04 | NURSING ---
Read and reviewed SN documentation
== END 2020-03-26 12:11 | disposition home or self-care (01) ==
LOC: ED 14:15 → PCU 14:42
PROVIDERS: Emergency Provider Emergency Medicine; PCP Family Medicine; Visit Provider Internal Medicine
DX: R07.89 Other chest pain (principal); I49.3 Ventricular premature depolarization; R06.02 Shortness of breath; E11.9 Type 2 diabetes mellitus without complications; I10 Essential (primary) hypertension; E78.5 Hyperlipidemia, unspecified; M54.9 Dorsalgia, unspecified; R42 Dizziness and giddiness; R06.09 Other forms of dyspnea; Z79.899 Other long term (current) drug therapy; Z79.82 Long term (current) use of aspirin; Z79.84 Long term (current) use of oral hypoglycemic drugs
CPT/HCPCS: 36415; 71045; 78452; 80048; 80061; 82962; 83036; 83735; 83880; 84443; 84484; 85025; 85379; 87635; 93005; 93017; 99218; 99285; A9500; A4216; G0378; U0002

== ENCOUNTER → 2020-04-20 09:38 | Outpatient (CLI) | payer BC, SELFPAY ==
[2020-03-25 18:27] VITALS: BMI 35.9
--- NOTE | 2020-04-20 16:31 | PFTCOMP ---
COMPLETE PULMONARY FUNCTION TEST INTERPRETATION Brief HPI: Patient is a 50 year old male, currently under the care of Dr. Vigil, who presents to [facility] for complete pulmonary function tests secondary to diagnosis of dyspnea. Respiratory therapist reports good effort and reproducible results. Interpretation: Forced expiration spirometry shows no large airways obstructive ventilatory defect with an FEV1 of 120% predicted. There is no significant bronchodilator response by strict ATS criteria. Spirograms are of good quality and plateau normally. The respiratory flow volume loop shows a normal pattern. Lung volumes by body plethysmography show an elevated total lung capacity at 6.01 L, 136% predicted. All other lung volumes are increased symmetrically. Diffusion capacity by carbon monoxide is normal at 103% predicted. The airway resistance is normal. No previous pulmonary function tests were available for review. Impression: These pulmonary function tests are grossly within normal limits. Consider bronchoprovocation challenge if asthma is being considered.
== END ==
PROVIDERS: PCP Family Medicine; Referring Provider Family Medicine; Visit Provider Family Medicine
DX: E11.9 Type 2 diabetes mellitus without complications (principal)
CPT/HCPCS: 94060; 94726; 94729

== ENCOUNTER 2020-09-26 13:34 | Day surgery (SDC) | payer BC, SELFPAY ==
[2020-03-25 18:27] VITALS: BMI 35.9
[2020-09-26] VITALS (8 sets, daily range): BP systolic 114–181; BP diastolic 68–121; PULSE 76–90; RESP 18–20; TEMP 36.1–37.1; O2SAT 20–100; BMI 35.9
--- NOTE | 2020-09-26 13:49 | EKG12_ITS ---
Test Reason : Blood Pressure : / mmHG Vent. Rate : 067 BPM Atrial Rate : 067 BPM P-R Int : 200 ms QRS Dur : 106 ms QT Int : 386 ms P-R-T Axes : 063 -40 023 degrees QTc Int : 407 ms Normal sinus rhythm Left axis deviation Abnormal ECG Confirmed by LIZA SCOTT, KERRI ([id number]), food expeditor FLORENTINO CESPEDES ([id number]) on 09/28/2020 9:12:11 AM Referred By: SONIDO/SOTO Confirmed By:KERRI DE JESUS MD
--- NOTE | 2020-09-26 14:04 | EDS_ITS ---
HPI History of Present Illness Chief Complaint: Abd Pain Informant: patient Onset/Context/Timing Onset: Today Context: Sudden Onset Timing: Continuous Current Severity: Severe Maximum Severity: Severe Narrative Narrative: The patient is a 50-year-old male with medical history significant for hypertension and diabetes who presents to the emergency department with rather acute onset abdominal pain. The patient states that he has been in his normal state of health. He states about an hour earlier, he had sudden onset, stabbing pain in his mid umbilical area. He states that he is never really had pain like this before. He has a history of diverticulitis, but states that this was lower. He denies fevers or chills. He denies nausea or vomiting. He is no history of abdominal surgery. Prior similar symptoms: No Recent Illness/[facility]ospital[facility]: [facility] Medical History (Updated 09/26/20 @ 14:39 by Melina Garcia) CPAP (continuous positive airway pressure) dependence Diabetes GERD (gastroesophageal reflux disease) Non-smoker Sleep apnea Home Medications atorvastatin 20 mg PO DAILY 06/23/17 [History Last Taken 09/26/20] metformin [Glucophage XR] 750 mg PO BID 06/23/17 [History Last Taken 09/26/20] aspirin 81 mg PO DAILY@0630 03/25/20 [History Last Taken 09/26/20] glimepiride 4 mg PO BID 03/25/20 [History Last Taken 09/26/20] lisinopril 10 mg PO DAILY 03/25/20 [History Last Taken 09/26/20] pioglitazone 15 mg PO DAILY 03/25/20 [History Last Taken 09/26/20] Allergy/AdvReac Type Severity Reaction Status Date / Time No Known Allergies Allergy Verified 09/26/20 13:38 Social History Smoking Status: Never smoker ROS ROS ED Constitutional Constitutional ED: Denies chills or fever(s) Eyes Eyes: Denies blurry vision or change in vision ENT ENT ED: Denies ear pain or sore throat Cardiovascular Cardiovascular: Denies chest pain or palpitations Respiratory/Chest Respiratory/Chest: Denies cough, dyspnea or dyspnea on exertion Gastrointestinal Gastrointestinal: Reports abdominal pain; Denies nausea or vomiting Genitourinary Genitourinary ED: Denies dysuria or urinary frequency Musculoskeletal Musculoskeletal: Denies arthralgias or myalgias Integumentary Denies rash Neurologic Neurologic: Denies headache(s) or paresthesias Psychiatric Psychiatric: Denies anxiety or depression Endocrine Endocrinology: Denies polydipsia or polyuria Allergic/Immunologic Allergic/Immunologic ED: Denies urticaria EXAM Physical Exam Const Vital Signs: 09/26/20 13:36 Temperature 97.8 F Temperature Source Temporal Pulse Rate 76 Respiratory Rate 18 Blood Pressure 181/121 H Blood Pressure Mean 141 Pulse Ox 99 Oxygen Delivery Method Room Air Positive well nourished and well developed General Appearance ED: well developed HEENT Reports normocephalic, head/scalp atraumatic and moist mucous membranes Eyes PERRL and EOMs intact bilaterally Neck no lymphadenopathy and supple General: Negative for tenderness Chest Wall inspection of chest normal Resp normal respiratory effort and clear to auscultation bilaterally Cardio regular rate, regular rhythm and no murmurs GI GI Narrative: Patient has incarcerated umbilical hernia that is very tender to palpation. Palpation: tender; Negative for guarding or rebound tenderness present Back/Spine no CVA tenderness Cervical Spine: Negative for cervical spine tenderness Thoracic Spine / Upper Back: Negative for thoracic spinal tenderness Extremity normal to inspection General Extremety ED: Negative for tenderness Neuro oriented x3 and CN's II-XII intact bilaterally Neuro Narrative: No focal deficits appreciated. Sensorium / Orientation: alert Psych mental status grossly normal Skin no rashes or lesions noted, no wounds and skin turgor normal MDM MDM MDM Narrative Medical decision making narrative: Patient presents with incarcerated umbilical hernia. He is markedly tender to palpation. IV was established and I did speak with general surgery on the patient's arrival. The patient was promptly evaluated by Dr. Garcia who thought that he would best be served going to the operating room for operative reduction. As he already has some skin changes, I do feel that this is very reasonable. The patient was covered with broad- spectrum antibiotics. He will be admitted to surgical service. Impression 1. Incarcerated umbilical hernia Lab Data Attestation: I reviewed the patient's lab results. Labs: Laboratory Results - last 24 hr 09/26/20 14:25 WBC 8.2 RBC 5.29 Hgb 14.5 Hct 45.1 MCV 85.3 MCH 27.4 MCHC 32.2 RDW Std Deviation 39.2 RDW Coeff of Janelle 12.7 Plt Count 290 MPV 9.4 Immature Gran % (Auto) 0.900 Neut % (Auto) 64.3 Lymph % (Auto) 24.0 Norton % (Auto) 8.0 Eos % (Auto) 2.3 Baso % (Auto) 0.5 Absolute Neuts (auto) 5.3 Absolute Lymphs (auto) 1.96 Nucleated RBC % 0 Radiography Chest X-Ray - ED: 1 View, Read by ED Physician, Normal, Heart, Lungs, Mediastinum and Bony Structures Discharge Plan Triage Chief Complaint: Abd Pain ED Provider: Ronaldo Santos Dx/Rx/DC Orders Primary Care Provider: Olivier Vigil
[2020-09-26] MEDS: Ondansetron 4 MG/2 ML Vial IV (14:24)
[2020-09-26] MEDS: Morphine 4 MG/ML Syringe IV (14:24)
[2020-09-26] MEDS: 0.9% Normal Saline 1,000 ML 1000 ML IV (14:24)
--- NOTE | 2020-09-26 14:29 | EX.PCM.CON.S ---
Assessment & Plan Assessment/Plan (1) Incarcerated umbilical hernia: PLAN: Plan will be to repair this incarcerated strangulated umbilical hernia. Going to repair this primarily patient understands that there is a 50-50 chance that he is going to have a recurrence at some point. Given the fact that he is not nauseated and he is still passing gas is unlikely that there is intestine located within this. However he does understand that there might be small bowel located here which could require further surgery to the intestines. Risk include bleeding infection blood clots heart attacks pneumonia strokes up to including . All questions asked were answered and the patient is willing to proceed. HPI Consult Data Date of Consult: 09/26/20 HPI Narrative HPI Narrative: IRIS OLEARY, is a 50 M who presents with medical history significant for hypertension and diabetes who presents to the emergency department with rather acute onset abdominal pain. The patient states that he has been in his normal state of health. He states about an hour earlier, he had sudden onset, stabbing pain in his mid umbilical area. He states that he is never really had pain like this before. He has a history of diverticulitis, but states that this was lower. He denies fevers or chills. He denies nausea or vomiting. He is no history of abdominal surgery. Prior similar symptoms: No Recent Illness/Hospitalization: No [facility] Home Medications atorvastatin 20 mg PO DAILY 06/23/17 [History Last Taken 03/25/20 06:30] metformin [Glucophage XR] 750 mg PO BID 06/23/17 [History Last Taken 03/25/20 06:30] aspirin 81 mg PO DAILY@0630 03/25/20 [History Last Taken 03/25/20 06:30] glimepiride 4 mg PO DAILY 03/25/20 [History Last Taken 03/25/20 06:30] lisinopril 10 mg PO DAILY 03/25/20 [History Last Taken 03/25/20 06:30] pioglitazone 15 mg PO DAILY 03/25/20 [History Last Taken 03/25/20 06:30] Allergy/AdvReac Type Severity Reaction Status Date / Time No Known Allergies Allergy Verified 09/26/20 13:38 Social History Smoking Status: Never smoker ROS Constitutional Constitutional: Denies anorexia or chills Eyes Eyes: Reports systems reviewed and no addt'l complaints, except as documented Cardiovascular Cardiovascular: Reports systems reviewed and no addt'l complaints, except as documented Respiratory/Chest Respiratory/Chest: Reports systems reviewed and no addt'l complaints, except as documented Gastrointestinal Gastrointestinal: Reports systems reviewed and no addt'l complaints, except as documented Genitourinary Genitourinary: Reports systems reviewed and no addt'l complaints, except as documented Musculoskeletal Musculoskeletal: Reports systems reviewed and no addt'l complaints, except as documented Physical Exam Const alert and oriented x3 HEENT normocephalic and head/scalp atraumatic Eyes PERRL and EOMs intact bilaterally Resp clear to auscultation bilaterally Cardio Rate: regular rate Rhythm: regular rhythm GI Palpation: tender periumbilical (Patient has an incarcerated strangulated umbilical hernia.) Lab / Micro Data Result Diagrams: 09/26/20 14:25 09/26/20 14:25
--- NOTE | 2020-09-26 14:31 | NURSING ---
DR SCOTT IN ER
[2020-09-26 14:40] LABS: Absolute Lymphocyte Count 1.96 X10^3/uL (0.83-4.51); Absolute Neutrophil Count 5.3 X10^3/uL (2.0-7.7); Basophil# 0.04 X10^3/uL; Basophil% 0.5 % (0-1); Eosinophil# 0.19 X10^3/uL; Eosinophils% 2.3 % (0-5); Hematocrit 45.1 % (40-54); Hemoglobin 14.5 g/dL (13.0-16.5); Lymphocyte # 1.96 X10^3/ul (0.83-4.51); Mean Corp Hgb Conc 32.2 g/dL (32-36); Mean Corpuscular Hgb 27.4 pg (27.0-32.0); Mean Corpuscular Volume 85.3 fL (80-94); Mean Platelet Vol. 9.4 fl (6.2-12.0); Monocyte# 0.65 X10^3/uL; NRBC Flagged by Analyzer 0 % (0-5); Neutrophil # 5.25 X10^3/uL (2.7-7.7); Neutrophil % 64.3 % (47-70); Platelet Count 290 K/mm3 (150-450); RBC Distribution Width CV 12.7 % (11.6-14.6); RBC Distribution Width SD 39.2 fl (35.1-43.9); Red Blood Count 5.29 M/mm3 (4.6-6.2); White Blood Count 8.2 K/mm3 (4.4-11.0)
--- NOTE | 2020-09-26 14:40 | RAD_ITS ---
EXAM: XR CHEST, 1 VIEW : 1970 CLINICAL INDICATION: pre-op, hernia repair TECHNIQUE: Frontal view of the chest. This report was created using [employer] report generation technology. COMPARISON: 03/25/2020 FINDINGS: LUNGS AND PLEURAL SPACES: Unremarkable. No consolidation or edema. No pneumothorax. No effusion. HEART: Unremarkable. Cardiac silhouette not enlarged. MEDIASTINUM: Central airways and mediastinal contour are unremarkable. BONES/JOINTS: Unremarkable. SOFT TISSUES: Unremarkable. RAD/Chest 1 View (Portable) IMPRESSION: No radiographic evidence of acute cardiopulmonary disease. at 1500 Reported and signed by: Casper Langston MD Electronically Signed: Casper Langston MD at 14:59 EDT Tel , Service support ,
[2020-09-26 14:52] LABS: AST(SGOT) 18 U/L (15-37); Alanine Aminotransfer ALT/SGPT 46 U/L (16-61); Albumin, Serum 3.9 g/dL (3.2-5.0); Alkaline Phosphatase 73 U/L (45-117); Anion Gap 6 (5-15); BUN 12 mg/dL (7-18); BUN/Creat Ratio 9.7 RATIO (10-20); Calcium,Total 9.3 mg/dL (8.5-10.1); Chloride 104 mmol/L (98-107); Creatinine, Serum 1.24 mg/dL (0.70-1.30); EST Glomerular Filtration Rate 65 mL/min (>60); Est Glom Filt Rate - Afr Amer 79 mL/min (>60); Estimated Creatinine Clearance 72.77 ml/min; Globulin 4.1 g/dL (2.2-4.2); Glucose 202 mg/dL (74-106); Potassium 4.2 mmol/L (3.5-5.1); Sodium Level 137 mmol/L (136-145)
[2020-09-26] MEDS: HYDROmorphone 1 MG/ML Syringe IV (14:56)
--- NOTE | 2020-09-26 15:01 | NURSING ---
SURGERY TYLER INCARCERATED HERNIA
--- NOTE | 2020-09-26 15:31 | ED.RN ---
REPORT WAS CALLED TO THE OR BY THIS RN.
[2020-09-26] MEDS: BUPIVACAINE LIPOSOME/PF 20 ML VIAL OPERA.SITE (15:55)
--- NOTE | 2020-09-26 16:13 | PCM.OPRPT ---
Problems Associated Problem List Diagnoses (1) Incarcerated umbilical hernia: Report of Operation Date of Procedure: 09/26/20 Pre-Operative Diagnosis: Incarcerated umbilical hernia Post-Operative Diagnosis: Same Surgery/Procedure Performed:: Repair of incarcerated umbilical hernia Surgeon: Rito Garcia engineer automated equipment: Sukhwinder Cervantes Type of Anesthesia: General Anesthesiologist: Darrell Yanez Specimen's removed: None Drains: None Estimated Blood Loss (mL): < 25 cc Description of Procedure: Patient was brought in the operating room. Placed in the supine position. Under excellent general endotracheal ovation abdomen was sterilely prepped and draped in usual fashion. Incarcerated umbilical hernia had spontaneously reduced. Local was injected curvilinear incision was made dissection was carried down to the fascia I dissected off the umbilicus from the hernia defect. The defect was only a centimeter and a half in length. I rereduced the hernia sac into its preperitoneal space it was not large enough for me to open this up and inspect underneath I truly believe that the incarcerated part was going to be is omentum and I decided that the best thing was not to do a general exploration on him. I closed the defect with 3 interrupted sutures of #1 Nurolon's. Exparel was injected in the subcutaneous tissues I brought the umbilicus back down to the fascia with a 2-0 Vicryl. Wound was then closed with deep dermal stitches of 3-0 Vicryl in a running 4-0 Monocryl. Steri-Strips were applied sterile dressings were applied and the patient tolerated the procedure well. Admit VTE Documentation VTE Present on Admission: No VTE Mechan Device Prophylaxis: SCD's Reason prophylaxis not ordered:: Treatment Not Indicated
[2020-09-26] MEDS: Lactated Ringers 1,000 ML 100 ML IV (16:15)
--- NOTE | 2020-09-26 16:16 | EX.PCM.DISCH ---
Discharge Instructions Procedure Hernia Diet Discharge Diet: Light diet - advance as tolerated Activity Discharge Activity: Return to Normal Activity, May Drive (when you are no longer taking narcotic pain medications.) and May Shower (with the bandage in place 1-2 days after surgery.) Lifting Restrictions: 20 pounds for 8 weeks. Additional Activity Instructions:: Climbing stairs is fine, walking is encouraged. Sitting in bed may be uncomfortable. Sitting up using your lateral muscles (sitting up sideways) is usually more comfortable. Do not drive, work heavy equipment of sign legal documents for 24 hours. If your hernia repair was an ingunial repair, you may have scrotal swelling, an ice pack and/or athletic support can provide more comfort. Pain medications may cause nausea, you should typically eat light foods as you take your pain medications. Pain medications may also cause constipation. If you have difficulty with this, discuss with your doctor. Dressing / Incision Call your doctor if your incision/area has: Continuous Slow Oozing, Sudden Increased Bleeding, Increased Pain/ Swelling, Increased Redness and Foul Smelling Discharge Call your doctor if you observe: Fever of 101 or Higher Suture Line Care: Avoid Pulling/Pushing and Avoid Pinching/Bending Additional Dressing/Incision Instructions:: Leave the operative bandage on for 2-3 days. When you remove the bandage, leave the steri-strips on place until your follow up appointment or they fall off. Follow Up Care Please Follow Up With: Mayra Guillory PA-C When: Call office to schedule an appointment to be seen in 7 days. Test Results: Test results from this visit will be discussed in further detail at your follow-up appointment, if applicable. Discharge Plan Admission Attending Provider: Rito Garcia Primary Care Provider: Olivier Vigil Instructions Patient Instructions: ED Chest Pain, Noncardiac Discharge Orders/Prescriptions Prescriptions: New oxycodone-acetaminophen [Percocet] 5-325 mg tablet 1 tab PO Q4H PRN (Reason: pain) 5 Days Qty: 20 RF: 0 Continued atorvastatin 20 MG tablet 20 mg PO DAILY RF: 0 metformin [Glucophage XR] 750 MG tablet extended release 24 hr 750 mg PO BID RF: 0 pioglitazone 15 MG tablet 15 mg PO DAILY RF: 0 glimepiride 4 MG tablet 4 mg PO BID RF: 0 aspirin 81 MG tablet 81 mg PO DAILY@0630 RF: 0 lisinopril 10 MG tablet 10 mg PO DAILY RF: 0 Referrals / Follow Up: Olivier Vigil MD [Primary Care Provider] - Mayra Guillory PA-C [PHYSICIAN MANAGER FRONT OFFICE] -
[2020-09-26 16:41] LABS: Bedside Glucose 189 mg/dL (70-110)
[2020-09-26] MEDS: Acetaminophen 325 MG Tablet PO (17:15)
[2020-09-26] MEDS: oxyCODONE 5 MG Tablet PO (17:18)
== END 2020-09-26 17:42 | disposition home or self-care (01) ==
LOC: ED 14:39 → SDC 14:44 → MS3 14:45
PROVIDERS: Emergency Provider Emergency Medicine; PCP Family Medicine; Visit Provider Surgery
PROC: (CPT 49587; principal; 2020-09-26 15:30)
DX: K42.0 Umbilical hernia with obstruction, without gangrene (principal); E11.9 Type 2 diabetes mellitus without complications; K21.9 Gastro-esophageal reflux disease without esophagitis; G47.30 Sleep apnea, unspecified; Z79.82 Long term (current) use of aspirin; Z79.84 Long term (current) use of oral hypoglycemic drugs
CPT/HCPCS: 49587; 71045; 80053; 82962; 85025; 87426; 93005; 99285; J7050; J7120; A4216; J2405

== ENCOUNTER → 2021-02-15 09:41 | Outpatient (CLI) | payer BC, SELFPAY ==
--- NOTE | 2021-02-15 09:46 | ECHOCS_ITS ---
Reason For Study: SOB Procedure This was a 2D Doppler, Color Flow transthoracic echocardiogram. Technically difficult due to patients body habitus. Contrast injection performed. The study was technically difficult. Contrast injection was performed. Exam performed in department. Left Ventricle Normal LV size. Left ventricular systolic function is normal. The estimated ejection fraction is 55 %. Transmitral doppler flow suggestive of impaired relaxation of left ventricle. No regional wall motion abnormalities noted. Right Ventricle Normal RV size. Normal systolic function. Atria Normal left atrium. Normal right atrium. No doppler evidence for ASD. Mitral Valve There is no mitral annular calcification. Normal mitral valve. Trivial mitral valve insufficiency. Tricuspid Valve Normal tricuspid valve. Trivial tricuspid valve insufficiency. Unable to estimate RV systolic pressure/pulmonary artery pressure due to technically difficult study. Aortic Valve Trisinus/trileaflet aortic valve. Normal aortic valve. Pulmonic Valve The pulmonic valve is not well visualized. Great Vessels The aortic root is not well visualized. Pericardium/Pleural No pericardial effusion. Medication 22 gauge I.V. with prn adaptor inserted into right arm. Diluted definity 2.4ml given slow IV push to enhance endocardial definition. MMode/2D Measurements & Calculations LVIDd: 4.3 cm IVSd: 1.1 cm LA dimension: 3.5 cm LVIDs: 2.4 cm LVPWd: 1.2 cm FS: 44.3 % LAV(MOD-bp): 41.8 ml LA A4 area: 16.3 cm2 RA A4 area: 11.2 cm2 LAV(MOD-bp) Indexed: 18.2 ml/m2 LAV(MOD-sp2): 41.5 ml LAV(MOD-sp4): 39.5 ml Time Measurements MV dec time: 0.28 sec Doppler Measurements & Calculations MV E max roberto: 43.1 cm/sec Lat Peak E' Roberto: 4.9 cm/sec Med Peak E' Roberto: 6.6 cm/sec MV A max roberto: 62.6 cm/sec E/E' lat: 8.8 E/E' med: 6.6 MV E/A: 0.69 MV V2 max: 68.3 cm/sec MV P1/2t max roberto: 50.2 cm/sec Ao V2 max: 110.4 cm/sec MV max P.9 mmHg MV P1/2t: 96.8 msec Ao max P.9 mmHg MV V2 mean: 38.1 cm/sec MV dec slope: 152.0 cm/sec2 MV mean P.68 mmHg MV V2 VTI: 15.1 cm MVA(P1/2t): 2.3 cm2 LV V1 max: 84.3 cm/sec PA V2 max: 95.3 cm/sec LV V1 max P.8 mmHg ECHO/Echo Complete W/ Contrast Interpretation Summary The study was technically difficult. Contrast injection was performed. Left ventricular systolic function is normal. The estimated ejection fraction is 55 %. Trivial mitral valve insufficiency. Trivial tricuspid valve insufficiency. Unable to estimate RV systolic pressure/pulmonary artery pressure due to techni allen difficult study. Transmitral doppler flow suggestive of impaired relaxation of left ventricle Ordering Physician: Olivier Vigil Referring Physician: Olivier Vigil Performed By: Flynn Orellana RCS
== END ==
PROVIDERS: PCP Family Medicine; Referring Provider Family Medicine; Visit Provider Family Medicine
DX: R06.02 Shortness of breath (principal)
CPT/HCPCS: 93306; Q9957; A4216; C8929; J3490

== ENCOUNTER → 2021-02-21 08:09 | Outpatient (CLI) | payer BC, SELFPAY ==
[2021-02-21 10:17] LABS: ALB/GLOB Ratio 0.9 RATIO (0.9-2.4); AST(SGOT) 18 U/L (15-37); Alanine Aminotransfer ALT/SGPT 47 U/L (16-61); Albumin, Serum 3.5 g/dL (3.2-5.0); Alkaline Phosphatase 81 U/L (45-117); Anion Gap 7 (5-15); BUN 12 mg/dL (7-18); BUN/Creat Ratio 10.9 RATIO (10-20); Calcium,Total 8.9 mg/dL (8.5-10.1); Chloride 105 mmol/L (98-107); Cholesterol 129 mg/dL (200); EST Glomerular Filtration Rate 75 mL/min (>60); Est Glom Filt Rate - Afr Amer 90 mL/min (>60); Globulin 4.1 g/dL (2.2-4.2); Glucose 206 mg/dL (74-106); High Density Lipoprotein 38 mg/dL; PSA,Total - Annual Screen 0.78 ng/mL (0.00-4.00); Potassium 4.3 mmol/L (3.5-5.1); Protein, Total 7.6 g/dL (6.4-8.2); Sodium Level 138 mmol/L (136-145); Thyroid Stim Hormone (TSH) 1.51 uIU/mL (0.358-3.74); Triglycerides 151 mg/dL; Very Low Density Lipoprotein 30 mg/dL (5-40)
== END ==
PROVIDERS: PCP Family Medicine; Visit Provider Family Medicine
DX: E11.9 Type 2 diabetes mellitus without complications (principal); Z12.5 Encounter for screening for malignant neoplasm of prostate
CPT/HCPCS: 36415; 80053; 80061; 84153; 84443; G0103

== ENCOUNTER 2021-06-20 03:01 | Emergency (ER) | payer BC, SELFPAY ==
[2021-06-20 03:04] VITALS: BP 141/88; PULSE 81; RESP 16; TEMP 35.6; O2SAT 100; BMI 36.8
[2021-06-20 03:07] VITALS: BP 141/88; PULSE 83; RESP 16; TEMP 35.6; O2SAT 100
--- NOTE | 2021-06-20 03:26 | CT_ITS ---
EXAM: CT HEAD WITHOUT INTRAVENOUS CONTRAST CLINICAL INDICATION: Paresthesia TECHNIQUE: Multiple axial images were obtained of the head without intravenous contrast. CTDIvol = ( 44.99 ) mGy, DLP = ( 832.67 ) mGycm This CT exam was performed using one or more of the following dose reduction techniques: automated exposure control, adjustment of the mA and/or kV according to patient size, and/or use of iterative reconstruction technique. This report was created using [employer] report generation technology. COMPARISON: None. FINDINGS: BRAIN AND EXTRA-AXIAL SPACES: Unremarkable. No intra- or extra-axial hemorrhage. No evidence of acute infarct. No intracranial mass or mass effect. There is preservation of the antunez/white matter interface. Posterior fossa structures are unremarkable. Ventricles are appropriate for age. No hydrocephalus. Basal cisterns are patent. BONES/JOINTS: No acute calvarial fracture. No discrete lytic or blastic abnormalities. SINUSES: Small air-fluid level involving the right maxillary sinus. Mild paranasal sinus mucosal thickening. MASTOID AIR CELLS: Mastoid air cells are clear. ORBITS: Visualized globes, extraocular muscles, optic nerves and retrobulbar fat appear unremarkable. CT/Brain/Head without Contrast IMPRESSION: 1. No acute intracranial pathology. 2. Acute on paranasal sinusitis is suspected. Electronically Signed: Seferino Cha MD at 3:53 EST ,
--- NOTE | 2021-06-20 03:27 | RAD_ITS ---
EXAM: XR CHEST, 2 VIEWS CLINICAL INDICATION: Chest pain TECHNIQUE: Frontal and lateral views of the chest. This report was created using [employer] report generation technology. COMPARISON: None. FINDINGS: LUNGS AND PLEURAL SPACES: Unremarkable. No consolidation or edema. No pneumothorax. No effusion. HEART: Unremarkable. Cardiac silhouette not enlarged. MEDIASTINUM: Central airways and mediastinal contour are unremarkable. BONES/JOINTS: Unremarkable. SOFT TISSUES: Unremarkable. RAD/Chest PA and Lateral IMPRESSION: No radiographic evidence of acute cardiopulmonary disease. Electronically Signed: Seferino Cha MD at 4:02 [facility] ,
--- NOTE | 2021-06-20 03:27 | EKG12_ITS ---
Test Reason : CP Blood Pressure : / mmHG Vent. Rate : 082 BPM Atrial Rate : 082 BPM P-R Int : 212 ms QRS Dur : 094 ms QT Int : 384 ms P-R-T Axes : 066 -42 022 degrees QTc Int : 448 ms Sinus rhythm with 1st degree A-V block Left axis deviation Abnormal ECG When compared with ECG of 26-SEP-2020 14:09, No significant change was found Confirmed by LIZA SCOTT, KERRI ([id number]), dictionary editor FLORENTINO CESPEDES ([id number]) on 06/23/2021 2:32:12 PM Referred By: KONSTANTIN Confirmed By:KERRI DE JESUS MD
[2021-06-20 03:42] LABS: Absolute Neutrophil Count 4.2 X10^3/uL (2.0-7.7); Basophil# 0.06 X10^3/uL; Basophil% 0.8 % (0-1); Eosinophil# 0.22 X10^3/uL; Eosinophils% 2.8 % (0-5); Hematocrit 44.2 % (40-54); Hemoglobin 14.3 g/dL (13.0-16.5); Lymphocyte % 32.9 % (19-41); Mean Corp Hgb Conc 32.4 g/dL (32-36); Mean Corpuscular Hgb 27.4 pg (27.0-32.0); Mean Corpuscular Volume 84.7 fL (80-94); Mean Platelet Vol. 11.4 fl (6.2-12.0); Monocyte# 0.81 X10^3/uL; Monocyte% 10.2 % (0-10); NRBC Flagged by Analyzer 0 % (0-5); Neutrophil # 4.17 X10^3/uL (2.7-7.7); Neutrophil % 52.7 % (47-70); POSITIVE COUNT YES; Platelet Count 186 K/mm3 (150-450); RBC Distribution Width CV 13.3 % (11.6-14.6); RBC Distribution Width SD 41.1 fl (35.1-43.9); Red Blood Count 5.22 M/mm3 (4.6-6.2); White Blood Count 7.9 K/mm3 (4.4-11.0)
[2021-06-20 03:43] LABS: Differential Indicated SCAN CRITERIA MET
--- NOTE | 2021-06-20 04:46 | EX.ED.DYSGE1 ---
HPI History of Present Illness Chief Complaint: Chest Other Narrative Narrative: Patient is a 51-year-old male who states last week he had a brief episode of numbness/tingling into his left arm. He states it resolved spontaneously after a few minutes. He states this evening he was sleeping when he awoke with that same sensation but this time essentially through his entire body. He states he did notice it in his chest as well and was concerned that this could be cardiac in nature and therefore comes in for evaluation. Patient denies any new medications nausea vomiting diarrhea or any other deficits associated with the paresthesias. [facility] Medical History (Updated 06/20/21 @ 04:[address] Seferino Catalan DO) CPAP (continuous positive airway pressure) dependence Diabetes GERD (gastroesophageal reflux disease) Non-smoker Sleep apnea Home Medications atorvastatin 20 mg PO DAILY 06/23/17 [History Last Taken 09/26/20] metformin [Glucophage XR] 750 mg PO BID 06/23/17 [History Last Taken 09/26/20] aspirin 81 mg PO DAILY@0630 03/25/20 [History Last Taken 09/26/20] glimepiride 4 mg PO BID 03/25/20 [History Last Taken 09/26/20] lisinopril 10 mg PO DAILY 03/25/20 [History Last Taken 09/26/20] pioglitazone 15 mg PO DAILY 03/25/20 [History Last Taken 09/26/20] dulaglutide [Trulicity] 0.75 mg SUBCUT QWEEK 06/20/21 [History Last Taken Unknown] Allergy/AdvReac Type Severity Reaction Status Date / Time No Known Allergies Allergy Verified 09/26/20 13:38 Social History Smoking Status: Never smoker ROS ROS ED Constitutional Constitutional ED: Denies chills or fever(s) Eyes Eyes: Denies change in vision ENT ENT ED: Denies sore throat Cardiovascular Cardiovascular: Reports chest pain; Denies palpitations or racing heartbeat Respiratory/Chest Respiratory/Chest: Denies cough or dyspnea Gastrointestinal Gastrointestinal: Denies abdominal pain, diarrhea, nausea or vomiting Genitourinary Genitourinary ED: Denies dysuria Musculoskeletal Musculoskeletal: Denies back pain, myalgias or neck pain Integumentary Denies rash Neurologic Neurologic: Reports paresthesias; Denies headache(s) or weakness Hematologic/Lymphatic Hematologic/Lymphatic: Denies easy bleeding or easy bruising EXAM Physical Exam Const Vital Signs: 06/20/21 03:04 06/20/21 03:07 06/20/21 05:28 Temperature 96.1 F L 96.1 F L Temperature Source Temporal Temporal Pulse Rate 81 83 76 Respiratory Rate 16 16 16 Blood Pressure 141/88 H 141/88 H 132/74 H Blood Pressure Mean 105 105 93 Pulse Ox 100 100 98 Oxygen Delivery Method Room Air Room Air Room Air Positive well nourished, well developed and obese General Appearance ED: well developed Nutritional Appearance: obese HEENT Reports moist mucous membranes Eyes PERRL and EOMs intact bilaterally Neck supple Neck Narrative: No bony deformity or step-off of the cervical spine no midline pain on palpation. No carotid bruit noted Resp normal respiratory effort and clear to auscultation bilaterally Cardio regular rate and regular rhythm Rate: other Other Details: Radial pulses are +2-4 bilaterally are equal and symmetric GI normal to inspection, nondistended, normoactive bowel sounds, non-tender, non-distended and no masses Auscultation: normoactive bowel sounds Palpation: soft Extremity normal to inspection Neuro oriented x3 and CN's II-XII intact bilaterally Neuro Narrative: Cranial nerves II through XII are grossly intact. No pronator drift no dysmetria no truncal ataxia. Patient states he still feels slight paresthesia diffusely but there is no asymmetry between either extremity or face. Because he reports the diffuse paresthesia he received an NIH stroke scale score of 1. Sensorium / Orientation: alert Motor Exam: strength 5/5 throughout Psych mental status grossly normal Skin no rashes or lesions noted MDM MDM MDM Narrative Medical decision making narrative: Patient presented to the ER awake and alert just mildly hypertensive. His neuro exam was essentially normal with him reporting no difference in sensation between any extremities but he still felt numb and tingly all over. Therefore elected to perform a head CT and with his report also of the atypical chest discomfort I did elect to perform a cardiac work-up. Patient's EKG is sinus rhythm head CT revealed no acute findings and chest x-ray is normal as well. There was difficulty obtaining blood and the patient was stuck multiple times without any success. I discussed with patient the fact that he could have an electrolyte disturbance making him feel this way and even though his chest pain/discomfort is not typical of cardiac disease there is still a chance he could be a non-STEMI which will only show up on the blood work. The patient reports he is feeling better at this time and his neuro exam remains normal. Vitals have also spontaneously improved with reduction in blood pressure with no medication given. Therefore at this time patient does not want to undergo further testing/IV attempt and as his neurologic exam is normal his EKG is sinus rhythm my concern that he is having any type of acute neurologic dysfunction or cardiac disease is low and I will allow him to be discharged as requested. He was advised to follow-up with family doctor to get outpatient testing to ensure there is no electrolyte disturbance and states that he will follow up as directed Lab Data Attestation: I reviewed the patient's lab results. Labs: Laboratory Results - last 24 hr 06/20/21 06/20/21 03:15 03:15 WBC 7.9 RBC 5.22 Hgb 14.3 Hct 44.2 MCV 84.7 MCH 27.4 MCHC 32.4 RDW Std Deviation 41.1 RDW Coeff of Janelle 13.3 Plt Count 186 MPV 11.4 Immature Gran % (Auto) 0.600 Neut % (Auto) 52.7 Lymph % (Auto) 32.9 [place] % (Auto) 10.2 H Eos % (Auto) 2.8 Baso % (Auto) 0.8 Absolute Neuts (auto) 4.2 Absolute Lymphs (auto) 2.60 Nucleated RBC % 0 Sodium Cancelled Potassium Cancelled Chloride Cancelled Carbon Dioxide Cancelled Anion Gap Cancelled BUN Cancelled Creatinine Cancelled Estim Creat Clear Calc Cancelled Est GFR (MDRD) Af Amer Cancelled Est GFR (MDRD) Non-Af Cancelled BUN/Creatinine Ratio Cancelled Glucose Cancelled Calcium Cancelled Troponin I High Sens Cancelled Radiography Diagnostic Testing: Clinical Impression(s) from Imaging Studies Brain CT 06/20/21 03:26 IMPRESSION: 1. No acute intracranial pathology. 2. Acute on paranasal sinusitis is suspected. Electronically Signed: Seferino Cha MD at 3:53 EST , Chest X-Ray 06/20/21 03:27 IMPRESSION: No radiographic evidence of acute cardiopulmonary disease. Electronically Signed: Seferino Cha MD at 4:02 EST , Discharge Plan Triage Chief Complaint: Chest Other ED Provider: Seferino Catalan Dx/Rx/DC Orders Clinical Impression: Paresthesias Instructions: ED Paraesthesias Prescriptions: No Action atorvastatin 20 MG tablet 20 mg PO DAILY RF: 0 metformin [Glucophage XR] 750 MG tablet extended release 24 hr 750 mg PO BID RF: 0 pioglitazone 15 MG tablet 15 mg PO DAILY RF: 0 glimepiride 4 MG tablet 4 mg PO BID RF: 0 aspirin 81 MG tablet 81 mg PO DAILY@0630 RF: 0 lisinopril 10 MG tablet 10 mg PO DAILY RF: 0 Trulicity 0.75 mg/0.5 mL pen injector 0.75 mg SUBCUT QWEEK RF: 0 Primary Care Provider: Olivier Vigil Referrals: Olivier Vigil MD [Primary Care Provider] - Activity Restrictions/Additional Instructions: Please follow-up with your family doctor to conduct outpatient laboratory tests to ensure there is no electrolyte abnormality as a cause of your symptoms and return to the ER should you have any further concerns Disposition Disposition: Home, Self Care Discharge Date/Time: 06/20/21 05:16
[2021-06-20 05:28] VITALS: BP 132/74; PULSE 76; RESP 16; O2SAT 98
== END 2021-06-20 05:16 | disposition home or self-care (01) ==
PROVIDERS: Emergency Provider Emergency Medicine; PCP Family Medicine; Visit Provider Emergency Medicine
DX: R20.2 Paresthesia of skin (principal); E11.9 Type 2 diabetes mellitus without complications; K21.9 Gastro-esophageal reflux disease without esophagitis; G47.30 Sleep apnea, unspecified
CPT/HCPCS: 70450; 71046; 85025; 90471; 93005; 99284; A4216

== ENCOUNTER 2021-06-22 09:51 | Outpatient (CLI) | payer BC, SELFPAY ==
[2021-06-22 12:30] LABS: Erythrocyte Sedimentation Rate 8 mm/hr (0-20)
[2021-06-22 12:32] LABS: Hematocrit 45.3 % (40-54); Hemoglobin 15.1 g/dL (13.0-16.5); Mean Corp Hgb Conc 33.3 g/dL (32-36); Mean Corpuscular Hgb 28.3 pg (27.0-32.0); Mean Platelet Vol. 10.8 fl (6.2-12.0); Platelet Count 258 K/mm3 (150-450); RBC Distribution Width CV 13.1 % (11.6-14.6); RBC Distribution Width SD 40.5 fl (35.1-43.9); Red Blood Count 5.33 M/mm3 (4.6-6.2); White Blood Count 6.7 K/mm3 (4.4-11.0)
[2021-06-22 12:47] LABS: Vitamin B12 344 pg/mL (211-911); Vitamin D,25 Hydroxy 20.9 ng/mL
[2021-06-22 13:08] LABS: Anion Gap 6 (5-15); BUN 12 mg/dL (7-18); BUN/Creat Ratio 11.9 RATIO (10-20); Calcium,Total 9.6 mg/dL (8.5-10.1); Chloride 106 mmol/L (98-107); Creatinine, Serum 1.01 mg/dL (0.70-1.30); EST Glomerular Filtration Rate 82 mL/min (>60); Est Glom Filt Rate - Afr Amer 100 mL/min (>60); Glucose 124 mg/dL (74-106); Potassium 4.2 mmol/L (3.5-5.1); Sodium Level 139 mmol/L (136-145)
== END 2021-06-22 23:59 | disposition home or self-care (01) ==
LOC: MFPLAB 09:52
PROVIDERS: PCP Family Medicine; Referring Provider Family Medicine; Visit Provider Family Medicine
DX: R20.2 Paresthesia of skin (principal)
CPT/HCPCS: 36415; 80048; 82306; 82607; 84443; 85027; 85652

== ENCOUNTER 2021-06-29 15:31 | Emergency (ER) | payer BC, SELFPAY ==
[2021-06-29 15:32] VITALS: BP 186/61; PULSE 94; RESP 18; TEMP 36.7; O2SAT 99; BMI 35.9
--- NOTE | 2021-06-29 15:46 | EKG12_ITS ---
Test Reason : CP Blood Pressure : / mmHG Vent. Rate : 086 BPM Atrial Rate : 086 BPM P-R Int : 202 ms QRS Dur : 100 ms QT Int : 370 ms P-R-T Axes : 057 -40 039 degrees QTc Int : 442 ms Normal sinus rhythm Left axis deviation Abnormal ECG Confirmed by GABRIEL SCOTT, JOHNATHON ([id number]), editor sound FLORENTINO CESPEDES ([id number]) on 06/30/2021 10:25:14 A M Referred By: ORVILLE/BARON Confirmed By:JASON RIOS MD
[2021-06-29 15:52] LABS: Absolute Lymphocyte Count 2.61 X10^3/uL (0.83-4.51); Absolute Neutrophil Count 4.6 X10^3/uL (2.0-7.7); Basophil# 0.05 X10^3/uL; Basophil% 0.6 % (0-1); Eosinophil# 0.22 X10^3/uL; Eosinophils% 2.7 % (0-5); Hematocrit 43.4 % (40-54); Hemoglobin 15.2 g/dL (13.0-16.5); Lymphocyte # 2.61 X10^3/ul (0.83-4.51); Lymphocyte % 31.5 % (19-41); Mean Corpuscular Hgb 28.7 pg (27.0-32.0); Mean Corpuscular Volume 81.9 fL (80-94); Mean Platelet Vol. 9.5 fl (6.2-12.0); Monocyte# 0.77 X10^3/uL; Monocyte% 9.3 % (0-10); NRBC Flagged by Analyzer 0 % (0-5); Neutrophil # 4.58 X10^3/uL (2.7-7.7); Neutrophil % 55.3 % (47-70); Platelet Count 266 K/mm3 (150-450); RBC Distribution Width CV 13.2 % (11.6-14.6); RBC Distribution Width SD 39.5 fl (35.1-43.9); White Blood Count 8.3 K/mm3 (4.4-11.0)
--- NOTE | 2021-06-29 16:00 | RAD_ITS ---
STUDY: X-RAY CHEST REASON FOR EXAM: Male, 51 years old. Chest turning and tightness radiating to left arm for 4 days TECHNIQUE: AP COMPARISON: 06/20/2021 FINDINGS: The lungs are clear and expanded. There is no demonstrated pleural abnormality. Normal size heart. Normal mediastinum and evon. Normal visualized pulmonary arteries. There is atherosclerotic tortuosity of the aortic arch and descending thoracic aorta. Normal visualized thoracic spine. Normal visualized ribs, clavicles, and shoulders. There is no demonstrated abnormality of the visualized soft tissue structures of the upper abdomen. RAD/Chest 1 View (Portable) IMPRESSION: Nonacute portable x-ray examination of the chest. Electronically Signed: Trace Hussein MD (Brooks) at 16:16 EST Reading Location ID and State: / [place] , Service support ,
[2021-06-29 16:09] LABS: Anion Gap 8 (5-15); BUN 12 mg/dL (7-18); BUN/Creat Ratio 9.6 RATIO (10-20); Calcium,Total 9.3 mg/dL (8.5-10.1); Chloride 106 mmol/L (98-107); Creatinine, Serum 1.25 mg/dL (0.70-1.30); EST Glomerular Filtration Rate 64 mL/min (>60); Est Glom Filt Rate - Afr Amer 78 mL/min (>60); Estimated Creatinine Clearance 71.38 ml/min; Glucose 156 mg/dL (74-106); Potassium 3.8 mmol/L (3.5-5.1); Sodium Level 140 mmol/L (136-145); Troponin-I HS 5 pg/mL (3.0-78.0)
--- NOTE | 2021-06-29 16:22 | ED.VIS.CHEST ---
HPI History of Present Illness Chief Complaint: Chest Pain Narrative Narrative: 51-year-old male presenting with burning in the left side of his chest. He states he has been dealing with this for about a week. Patient previously seen in the ER for similar symptoms however at that time he states he had burning throughout his entire body. He notes that he has been having shortness of breath issues for about a year. His primary care provider has been doing lab work but has not been able to find anything that is abnormal. He states he has not had a stress test. Patient denies any cardiac history that he knows of. He does have diabetes, hypertension, hyperlipidemia. Patient states that the burning specifically in the left shoulder and left side of his chest started about 3 days ago. The second day he had complete resolution of the symptoms and then the pain came back today. Patient states he was at work and was doing a lot of climbing stairs and heavy work and felt like he was more short of breath than usual. Activity does not appear to make his chest pain worse or the burning worse. He denies fever, cough. [facility] Medical History CPAP (continuous positive airway pressure) dependence Diabetes GERD (gastroesophageal reflux disease) HTN (hypertension) Hyperlipemia Non-smoker Sleep apnea Home Medications atorvastatin 20 mg PO DAILY 06/23/17 [History Last Taken 09/26/20] metformin [Glucophage XR] 750 mg PO BID 06/23/17 [History Last Taken 09/26/20] aspirin 81 mg PO DAILY@0630 03/25/20 [History Last Taken 09/26/20] glimepiride 4 mg PO BID 03/25/20 [History Last Taken 09/26/20] lisinopril 10 mg PO DAILY 03/25/20 [History Last Taken 09/26/20] pioglitazone 15 mg PO DAILY 03/25/20 [History Last Taken 09/26/20] dulaglutide [Trulicity] 0.75 mg SUBCUT QWEEK 06/20/21 [History Last Taken Unknown] Allergy/AdvReac Type Severity Reaction Status Date / Time No Known Allergies Allergy Verified 06/29/21 15:35 Social History Smoking Status: Never smoker ROS ROS ED Constitutional Constitutional ED: Denies chills or fever(s) Eyes Eyes: Denies blurry vision or change in vision ENT ENT ED: Denies rhinorrhea or sore throat Cardiovascular Cardiovascular: Reports as per HPI Respiratory/Chest Respiratory/Chest: Reports dyspnea and dyspnea on exertion; Denies cough or sputum Gastrointestinal Gastrointestinal: Denies abdominal pain, nausea or vomiting Genitourinary Genitourinary ED: Denies dysuria or hematuria Musculoskeletal Musculoskeletal: Denies arthralgias or myalgias Integumentary Denies Abrasions or rash Neurologic Neurologic: Denies headache(s) or weakness Psychiatric Psychiatric: Denies depression, suicidal ideation or suicidal thoughts EXAM Physical Exam Const Vital Signs: 06/29/21 15:32 06/29/21 15:35 06/29/21 15:56 Temperature 98.1 F Temperature Source Oral Pulse Rate 94 Respiratory Rate 18 Respiratory Effort Normal Non-Labored Blood Pressure 186/61 H Blood Pressure Mean 102 Pulse Ox 99 Oxygen Delivery Method Room Air Room Air 06/29/21 18:37 Temperature Temperature Source Pulse Rate 84 Respiratory Rate 16 Respiratory Effort Blood Pressure 155/70 H Blood Pressure Mean Pulse Ox 99 Oxygen Delivery Method Positive obese General Appearance ED: NAD; Negative for pallor Nutritional Appearance: obese HEENT Reports moist mucous membranes normocephalic Eyes PERRL Chest Wall inspection of chest normal and palpation of chest normal Resp normal respiratory effort Effort and Inspection: respiratory distress Cardio regular rate and regular rhythm GI normal to inspection, nondistended, normoactive bowel sounds Extremity normal to inspection General Extremety ED: Negative for edema or tenderness General Extremity: Negative for edema Neuro oriented x3 and CN's II-XII intact bilaterally Sensorium / Orientation: awake and alert Motor Exam: strength 5/5 throughout Psych mental status grossly normal Skin General Skin Exam: Negative for jaundice or pallor Heart Score History: Slightly/Non-Suspicious ECG: Normal Age: >45 - <65 years Risk Factors: >/= 3 Risk Factors or History of CAD Troponin: </= Normal Limit Score: 3 MDM MDM MDM Narrative Medical decision making narrative: Patient presented with left-sided burning chest pain which he has had previously about a week ago and was seen and evaluated in the ER at that time. Obtain an EKG today and its a normal sinus rhythm 86 bpm without sign of ischemic change on my interpretation. Chest x-ray my interpretation shows no acute cardiopulmonary process and the radiologist agree. CBC and BMP are within normal limits with exception of a mildly high glucose of 156 without an anion gap. High-sensitivity troponin is 5 initially and at 2 hours is 5. I have low suspicion for PE as the patient is not having pleuritic chest pain or sharp chest pain. His heart rate is 84, respirate 16, pulse ox 99% on room air. Patient counseled again on negative work-up. He does have some risk factors and I recommended that he follow-up with his PCP to ensure resolution. He was amenable to this. Patient discharged home in stable condition. Impression: 1. Chest pain, noncardiac Lab Data Attestation: I reviewed the patient's lab results. Labs: Laboratory Results - last 24 hr 06/29/21 06/29/21 06/29/21 15:41 15:41 17:36 WBC 8.3 RBC 5.30 Hgb 15.2 Hct 43.4 MCV 81.9 MCH 28.7 MCHC 35.0 RDW Std Deviation 39.5 RDW Coeff of Janelle 13.2 Plt Count 266 MPV 9.5 Immature Gran % (Auto) 0.600 Neut % (Auto) 55.3 Lymph % (Auto) 31.5 [place] % (Auto) 9.3 Eos % (Auto) 2.7 Baso % (Auto) 0.6 Absolute Neuts (auto) 4.6 Absolute Lymphs (auto) 2.61 Nucleated RBC % 0 Sodium 140 Potassium 3.8 Chloride 106 Carbon Dioxide 26.0 Anion Gap 8 BUN 12 Creatinine 1.25 Estim Creat Clear Calc 71.38 Est GFR (MDRD) Af Amer 78 Est GFR (MDRD) Non-Af 64 BUN/Creatinine Ratio 9.6 L Glucose 156 H Calcium 9.3 Troponin I High Sens 5 5 Radiography Diagnostic Testing: Clinical Impression(s) from Imaging Studies Chest X-Ray 06/29/21 16:00 IMPRESSION: Nonacute portable x-ray examination of the chest. Electronically Signed: Trace Hussein MD (Brooks) at 16:16 EST Reading Location ID and State: [place] , Service support , Discharge Plan Triage Chief Complaint: Chest Pain ED Provider: Marquez Rowland Dx/Rx/DC Orders Instructions: ED Chest Pain, Noncardiac Prescriptions: No Action atorvastatin 20 MG tablet 20 mg PO DAILY RF: 0 metformin [Glucophage XR] 750 MG tablet extended release 24 hr 750 mg PO BID RF: 0 pioglitazone 15 MG tablet 15 mg PO DAILY RF: 0 glimepiride 4 MG tablet 4 mg PO BID RF: 0 aspirin 81 MG tablet 81 mg PO DAILY@0630 RF: 0 lisinopril 10 MG tablet 10 mg PO DAILY RF: 0 Trulicity 0.75 mg/0.5 mL pen injector 0.75 mg SUBCUT QWEEK RF: 0 Primary Care Provider: Olivier Vigil Referrals: Olivier Vigil MD [Primary Care Provider] - Disposition Disposition: Home, Self Care Discharge Date/Time: 06/29/21 18:37
[2021-06-29 18:03] LABS: Troponin-I HS 5 pg/mL (3.0-78.0)
[2021-06-29 18:37] VITALS: BP 155/70; PULSE 84; RESP 16; O2SAT 99
== END 2021-06-29 18:37 | disposition home or self-care (01) ==
PROVIDERS: Emergency Provider Student in an Organized Health Care Education/Training Program; PCP Family Medicine; Visit Provider Student in an Organized Health Care Education/Training Program
DX: R07.89 Other chest pain (principal); E11.9 Type 2 diabetes mellitus without complications; R06.02 Shortness of breath; I10 Essential (primary) hypertension; E78.5 Hyperlipidemia, unspecified; K21.9 Gastro-esophageal reflux disease without esophagitis; G47.30 Sleep apnea, unspecified; Z99.89 Dependence on other enabling machines and devices
CPT/HCPCS: 71045; 80048; 84484; 85025; 93005; 99284; A4216

== ENCOUNTER → 2021-09-08 | Outpatient (CLI) | payer BC, SELFPAY ==
[2021-09-08 15:51] LABS: Absolute Lymphocyte Count 2.85 X10^3/uL (0.83-4.51); Absolute Neutrophil Count 3.3 X10^3/uL (2.0-7.7); Basophil# 0.04 X10^3/uL; Basophil% 0.6 % (0-1); Eosinophil# 0.19 X10^3/uL; Eosinophils% 2.6 % (0-5); Hematocrit 45.4 % (40-54); Hemoglobin 14.8 g/dL (13.0-16.5); Lymphocyte # 2.85 X10^3/ul (0.83-4.51); Lymphocyte % 39.5 % (19-41); Mean Corp Hgb Conc 32.6 g/dL (32-36); Mean Corpuscular Hgb 27.5 pg (27.0-32.0); Mean Corpuscular Volume 84.2 fL (80-94); Mean Platelet Vol. 9.2 fl (6.2-12.0); Monocyte# 0.76 X10^3/uL; Monocyte% 10.5 % (0-10); NRBC Flagged by Analyzer 0 % (0-5); Neutrophil # 3.33 X10^3/uL (2.7-7.7); Neutrophil % 46.2 % (47-70); Platelet Count 262 K/mm3 (150-450); RBC Distribution Width CV 14.1 % (11.6-14.6); RBC Distribution Width SD 43.5 fl (35.1-43.9); Red Blood Count 5.39 M/mm3 (4.6-6.2); White Blood Count 7.2 K/mm3 (4.4-11.0)
[2021-09-08 16:08] LABS: Prothrombin Time (Protime)PT. 12.6 SECONDS (11.7-14.9)
[2021-09-08 16:09] LABS: Partial Thromboplast Time 26.6 Seconds (24.1-36.2)
[2021-09-08 16:27] LABS: Anion Gap 5 (5-15); BUN 11 mg/dL (7-18); BUN/Creat Ratio 10.4 RATIO (10-20); Calcium,Total 9.1 mg/dL (8.5-10.1); Chloride 108 mmol/L (98-107); Creatinine, Serum 1.06 mg/dL (0.70-1.30); EST Glomerular Filtration Rate 78 mL/min (>60); Est Glom Filt Rate - Afr Amer 94 mL/min (>60); Glucose 111 mg/dL (74-106); Potassium 3.9 mmol/L (3.5-5.1); Sodium Level 139 mmol/L (136-145)
== END | disposition home or self-care (01) ==
LOC: LAB 15:15
PROVIDERS: PCP Family Medicine; Referring Provider Internal Medicine Cardiovascular Disease; Visit Provider Internal Medicine Cardiovascular Disease
DX: I20.9 Angina pectoris, unspecified (principal); E78.2 Mixed hyperlipidemia; I10 Essential (primary) hypertension; I49.3 Ventricular premature depolarization
CPT/HCPCS: 36415; 80048; 85025; 85610; 85730

== ENCOUNTER 2021-09-23 07:01 | Day surgery (SDC) | payer BC, SELFPAY ==
--- NOTE | 2021-09-19 16:25 | PCM.HP.BLA ---
History and Physical Date of Admission: 09/23/21 [facility] [address] [place] [address] [phone] OFFICE VISITDate of Service: 09/08/21 MR#:[id number]: IRIS OLEARY LRep #:[id number] Provider:Dr. Gold Fields, CLARIge/Sex: 51/M [facility] HPI History of Present Illness Surgical H&P: Yes Details: This is a 51-year-old white male who presents today for outpatient cardiovascular consultation based upon ongoing concerns of chest discomfort/left upper extremity discomfort-occurring at rest, in the setting of previous unremarkable noninvasive studies for consideration for diagnostic cardiac catheterization. He states he has been evaluated as an outpatient in the past with his PCP. He has undergone noninvasive studies which have included a transthoracic echocardiogram as well as an exercise tolerance test/imaging study. The results of his studies are noted below. He notes despite the results of the studies he continues to have episodes of chest discomfort which he describes as a discomfort in his left arm/forearm as well as his left axillary area and then into his left chest which can radiate across to his right chest. He states that at times this can feel like a burning sensation and/or a pressure sensation. It may not necessarily be associated with ongoing nausea, emesis, diaphoresis, or dyspnea. It can last for various periods of time. He states that it has come and go over time. There are times when this bothers him that he cannot get comfortable. He states he has presented to the emergency department for this in the past. He has had negative evaluations by cardiac enzymes and by ECGs. He has undergone his previous noninvasive studies as noted. He states he was being evaluated by his PCP who recommended he be evaluated by cardiology with consideration to performing cardiac catheterization for more definitive evaluation of his cardiac status. He had an ECG in the office today. He was noted to be in sinus rhythm with a left axis deviation and a left anterior fascicular block pattern as well as poor R wave progression with consideration to an anterior [place] of indeterminate age cannot be excluded. Intake Vital Signs 09/08/21 13:50 Height 5 ft 10 in Weight: 261 lb 3 oz BMI 37.5 BP 144/72 H Blood Pressure Location Lt brachial Position Sitting Respiration 16 Pulse 80 Pulse Source Auscultation Intake Visit Reasons: HTN/REF. GIACOMO Supervisor Purification Required: No Accompanied by: Self Allergies No Known Allergies Allergy (Verified 09/08/21 13:50) Medications atorvastatin 20 mg PO DAILY 06/23/17 [History Confirmed 09/08/21] metformin [Glucophage XR] 750 mg PO BID 06/23/17 [History Confirmed 09/08/21] aspirin 81 mg PO DAILY@0630 03/25/20 [History Confirmed 09/08/21] glimepiride 4 mg PO BID 03/25/20 [History Confirmed 09/08/21] lisinopril 10 mg PO DAILY 03/25/20 [History Confirmed 09/08/21] pioglitazone 15 mg PO DAILY 03/25/20 [History Confirmed 09/08/21] cholecalciferol (vitamin D3) 50 mcg (2,000 unit) tablet 50 mcg PO DAILY 09/06/21 [History Confirmed 09/08/21] omeprazole 40 mg capsule,delayed release 40 mg PO DAILY 09/06/21 [History Confirmed 09/08/21] dulaglutide 0.75 mg/0.5 mL subcutaneous pen injector 1.5 mg SUBCUT QWEEK ml 09/08/21 [History Confirmed 09/08/21] loratadine 10 mg tablet 10 mg PO DAILY 09/08/21 [History Confirmed 09/08/21] [facility] Medical History (Updated 09/08/21 @ 14:[address] Gold Fields MD) Angina pectoris CPAP (continuous positive airway pressure) dependence Diabetes Diabetes Essential hypertension GERD (gastroesophageal reflux disease) High cholesterol HTN (hypertension) Hyperlipemia Hypertension Incarcerated umbilical hernia Mixed hyperlipidemia Non-smoker MARKY (obstructive sleep apnea) Sleep apnea Type 2 diabetes mellitus Surgical History History of hernia repair Family History Father Diabetes CAD (coronary artery disease) Grandfather Diabetes Grandmother Diabetes Social History Smoking Status: Never smoker alcohol intake: current details: occasional substance use type: does not use caffeine: Yes Type: coffee Number of servings: 3 ROS Const Const: Positive for fatigue (increased); Negative for weakness, frequent falls, excessive sweating, weight gain or weight loss Eyes Eyes: Negative for transient loss of vision, blurry vision or change in vision ENT ENT: Negative for dizziness or balance problems Cardio Chest Pain: Yes Character: other (burning) Onset: exercise Location: other (across chest; Lt UE into the axillary felt tight) Duration: hours Palpitations: No Edema: None Muscle aches with walking: None Resp Respiratory: Positive for SOB with activity (occasionally increased) and SOB at rest GI GI: Negative vomiting or vomiting blood/hematemesis : Negative for hematuria Musc Musc: Negative for muscle aches/ myalgia, muscle weakness, joint pain or balance problems Skin Skin: Negative non-healing lesions or rash Neuro Neuro: Negative for dizziness, lightheadedness, orthostatic symptoms, frequent falls, weakness or blurry vision Deandre Hematologic/Lymphatic: Negative for easy bleeding Endo Endo: Positive for fatigue (increased); Negative for excessive sweating Psych Psych: Negative for anxiety or depression Allergy Allergy/Immunology: Negative for hives and Negative for rash Cardiology Exam Const Appearance: cooperative, healthy appearing, comfortable, no acute distress, well developed and well groomed Nutritional Appearance: obese Orientation: alert, awake and oriented x3 Head Head: normal to inspection, normocephalic and atraumatic Ears: hearing grossly normal bilaterally Nose: external nose normal Face and Sinus: face symmetric Eyes Eyelids: eyelids normal Conjunctivae: conjunctivae normal Pupils: PERRL EOM: EOM intact bilaterally Neck Neck: normal visual inspection and full ROM Carotids: normal carotid upstroke Chest Chest inspection: normal inspection of the chest, symmetric chest movement and normal respiratory effort Auscultation: Bilateral: Clear to Auscultation Cardio Rate: regular rate Rhythm: regular rhythm Heart sounds: S1 normal and S2 normal GI GI: normal to inspection, soft, bowel sounds present and obese Neuro General: patient alert, patient awake, patient oriented x3 and moves all extremities Skin Skin: no rashes or lesions noted Extremities Pulses: Normal: Right Radial Pulse and Left Radial Pulse Lower Extremity Edema: None: Bilateral Psych Psychological: normal affect Supplemental Info Supplemental Information Echocardiogram: 02/15/2021 Interpretation Summary The study was technically difficult. Contrast injection was performed. Left ventricular systolic function is normal. The estimated ejection fraction is 55 %. Trivial mitral valve insufficiency. Trivial tricuspid valve insufficiency. Unable to estimate RV systolic pressure/pulmonary artery pressure due to technically difficult study. Transmitral doppler flow suggestive of impaired relaxation of left ventricle Stress Test Report Date: Procedure: Exercise tolerance test/imaging study Indications: Chest pain: Shortness of breath Consent: Per the patient Procedure: The patient exercised on a Drew protocol for 5 minutes and 33 seconds completing Stage I and 2 minutes and 33 seconds of Stage II achieving a peak heart rate of 148 bpm (87% predicted maximal heart rate) with a peak blood pressure 188/82 mmHg and a peak MET capacity of 7 METs. The baseline ECG demonstrated sinus rhythm; poor R wave progression; occasional PVC. The peak exercise ECG demonstrated no obvious ECG changes. There were occasional PVCs pretest and occasional PVCs/ventricular couplets during exercise and occasional PVCs during recovery. The functional capacity was considered average. There was no complaint of chest discomfort during exercise or recovery. The examination was discontinued secondary to dyspnea. Impression: 1. Technically adequate (percent predicted maximal heart rate greater than 85%) exercise tolerance test 2. Peak exercise ECG no obvious ECG changes 3. There were occasional PVCs pretest and occasional PVCs/ventricular couplets during exercise and occasional PVCs during recovery 4. Nuclear images pending Myocardial perfusion imaging study: Technique: The patient was injected with mCi of technetium 99m Cardiolite and subsequently rest SPECT Cardiolite nuclear imaging was obtained in the horizontal long, vertical long, and short axis views. The patient exercised on a Drew protocol for 5 minutes and 33 seconds completing Stage I and 2 minutes and 33 seconds of Stage II achieving a peak heart rate of 148 bpm (87% predicted maximal heart rate) with a peak blood pressure 188/82 mmHg and a peak MET capacity of 7 METs. The patient was injected with mCi of technetium 99m Cardiolite and subsequently stress SPECT Cardiolite nuclear imaging was obtained in the horizontal long, vertical long, and short axis views. A gated Cardiolite study at peak stress was obtained. Interpretation: Rest and stress SPECT Cardiolite nuclear imaging status post realignment, normalization, and attenuation correction, demonstrates the appearance at rest of a small area of subtle diminished tracer uptake in the mid/distal anteroseptal segments which status post stress appears to improve/normalize. There is similar type findings on the resting and stress polar map images. There is end systolic thickening and brightening. The gated Cardiolite study demonstrates myocardial thickening and inward wall motion. The reported LVEF is 65%. Impression: 1. Rest and stress SPECT Cardiolite nuclear imaging demonstrate myocardial perfusion changes at rest which appear to improve/normalize following stress appearing compatible shifting soft tissue attenuation/artifact with no myocardial perfusion changes considered diagnostic for associated stress-induced myocardial ischemia. 2. The gated Cardiolite study reports an LVEF of 65%. Labs: LDL Cholesterol 61 mg/dL (0-130) HDL Cholesterol 38 mg/dL (40-) L Triglycerides 151 mg/dL (-199) VLDL Cholesterol 30 mg/dL (5-40) Diagnostics: Electrocardiogram Echocardiogram Stress Test NM Stress Test Chest X-Ray Pulmonary: Pulmonary Function Test Assessment and Plan Assessment and Plan (1) Angina pectoris: Status: Acute Orders: Orders: Left Heart Cath/COR/LV Percut Today Basic Metabolic Profile (BMP) Today Partial Thromboplast Time Today Prothrombin Time w/INR Today CBC W/Diff, Automated Today Plan - Dr. Gold Fields MD: At the present time he has symptoms concerning for angina pectoris. He has undergone evaluation and care as noted. Based upon his clinical scenario and his previous evaluation would not be unreasonable to consider further definitive evaluation of his coronary status with a diagnostic cardiac catheterization. The procedure and risk were discussed with him. He was agreeable to this approach. If this is unremarkable then he will need continued noncardiac evaluation of his ongoing symptoms. (2) PVC (premature ventricular contraction): Status: Acute Orders: Orders: 12 Lead EKG performed by BMS Today Left Heart Cath/COR/LV Percut Today Basic Metabolic Profile (BMP) Today Partial Thromboplast Time Today Prothrombin Time w/INR Today CBC W/Diff, Automated Today Plan - Dr. Gold Fields MD: There is a history of PVCs. He appears to be without ongoing compromising symptoms/events at this time. He will continue medical therapy and follow-up. (3) Mixed hyperlipidemia: Status: Acute Orders: Orders: Left Heart Cath/COR/LV Percut Today Basic Metabolic Profile (BMP) Today Partial Thromboplast Time Today Prothrombin Time w/INR Today CBC W/Diff, Automated Today Plan - Dr. Gold Fields MD: He should continue risk factor evaluation/medical therapy. (4) Essential hypertension: Status: Acute Orders: Orders: 12 Lead EKG performed by BMS Today Left Heart Cath/COR/LV Percut Today Basic Metabolic Profile (BMP) Today Partial Thromboplast Time Today Prothrombin Time w/INR Today CBC W/Diff, Automated Today Plan - Dr. Gold Fields MD: His blood pressure will need to be followed over time by his physicians with adjustment of his medications to keep his pressures under good control to help minimize his cardiovascular risk factors. Plan Details Additional Comments: Thank you for allowing me to participate in the care of your patient. Please don't hesitate to call if any issues arise. This note was generated using a voice recognition system and there may be incorrect words, spelling or punctuation that were not noted when reviewing the office note prior to saving. Follow Up: 3 Months (PFM ) COVID (Procedure Consent) Procedure Criteria Procedure Criteria: Yes Elective The surgeon/proceduralist and patient have discussed in detail the risk of exposure to and/or potential harm posed by the COVID-19 virus with having a surgery/procedure at this time versus the risk of delaying the surgery/procedure. It is not possible to know either the risk of delaying the surgery or procedure or chance of getting an infection with perfect accuracy, but a joint decision was made between the patient and the surgeon/proceduralist to proceed at this time with the scheduled surgery/procedure as indicated on the consent form. Coding Level of Care Code Off vis,new,level 5 Diagnoses Angina pectoris I20.9 PVC (premature ventricular contraction) I49.3 Mixed hyperlipidemia E78.2 Essential hypertension I10 Coding Level of Care Code Off vis,new,level 5 Diagnoses Angina pectoris I20.9 PVC (premature ventricular contraction) I49.3 Mixed hyperlipidemia E78.2 Essential hypertension I10 09/08/21 [id number]<Electronically signed by Gold Fields MD>Date Gold Fields MD Cosigner Signature:Date (if applicable) CC: Dr. Olivier Vigil MD ~ Assessment & Plan Addt'l Comments I have re-examined the patient. There are no clinical changes since date of exam
[2021-09-22 07:52] VITALS: BMI 37.4
--- NOTE | 2021-09-23 08:42 | CL.D_ITS ---
Patient Name: IRIS OLEARY Study Date: 09/23/2021 Performing: Gold Fields MD Ht: 70.07 inches 178 cm : 1970 Wt: 260.15 lbs 118 kg Age: 51 Gender: male BSA: 2.34 PROCEDURE(S) PERFORMED DC01-(36070)LHC/COR/LV CLINICAL PROFILE AND INDICATIONS Indications: Worsening Angina Heart Failure: None Stress/Imaging Date: 03/26/2021tress Test with SPECT MPI: Negative Angina Classification Anginal Classification w/in 2 Weeks: CCS III CAD Presentations: Other: worsening angina CONCLUSIONS Elevated Left Ventricular End Diastolic Pressure Normal LV size, wall motion,and systolic function LVEF: by LV gram 65 % Double vessel CAD of the LAD distal / RCA proximal: mild luminal irregularities RECOMMENDATIONS Risk factor modification Medical therapy DESCRIPTION OF PROCEDURE The patient arrived to the procedure lab. The risks and benefits of the procedure as well as a full d escription of our services here and current unavailability of surgical backup were fully explained to the patient and/or their significant other prior to the catheterization. The Timeout was completed, verifying the correct patient and procedure. The patient's procedural site was prepped and draped in the usual fashion. Local anesthetic was given subcutaneously to right radial region with Lidocaine 2% . Using a modified Seldinger technique, arterial access was obtained via the right radial artery, a 6 Fr sheath was inserted. Right Coronary Artery selective angiography was then performed in multiple v iews using a 5 Fr. 4.0 Sheridan catheter. Left Coronary Artery selective angiography was performed in mu ltiple views using a 5 Fr. JL3.5 catheter. Left Ventriculography was performed in KRAUSE projection usin g a 5 Fr. Pigtail catheter. LV to AO pullback pressures were then recorded.The arterial sheath was pulled and a TR Band was applied for hemostasis CORONARY ANGIOGRAPHY DOMINANCE: Right Dominant LEFT HEART ASSESSMENT Left Ventricular Ejection Fraction: by LV Gram 65 % Normal LV wall motion Elevated Left Ventricular End Diastolic Pressure LVEDP: 23 mmHg LEFT MAIN: Angiographically normal LEFT ANTERIOR DESCENDING ARTERY: DISTAL LAD: Mild luminal irregularities CIRCUMFLEX ARTERY: Severe calcification, Angiographically normal RAMUS: Angiographically normal RIGHT CORONARY ARTERY: PROX RCA: Mild luminal irregularities AORTIC ROOT: Angiographically normal COMPLICATIONS No Complications PROCEDURE MEDICATIONS Fentanyl 50 mcg IV Versed 1 mg IV Fentanyl 50 mcg IV Versed 1 mg IV Oxygen: 2 L/min via nasal cannula Heparin given IA 09/23/2021 08:05:52 Verapamil 2.5mg, Ntg 100mcgs, 3000 units of Heparin given IA 09/23/2021 08:05:52 SUMMARY OF HEMODYNAMIC DATA Time AIR REST ECG 07:15:30 ECG 07:38:47 Art 168/73 (101) 07:58:21 AO 117/80 (95) SA 08:07:57 LV 149/-3, 26 08:20:17 LV 148/-8, 23 08:20:26 LV 150/0, 26 08:21:23 LV 148/-8, 23 08:21:32 LVp 146/-10, 22 08:21:40 AOp 135/76 (100) 08:21:47 Signed By Gold Fields MD On 09/23/2021 8:41:39 AM Gold Fields MD
== END 2021-09-23 10:20 | disposition home or self-care (01) ==
LOC: CLSP 07:02
PROVIDERS: PCP Family Medicine; Referring Provider Internal Medicine Cardiovascular Disease; Visit Provider Internal Medicine Cardiovascular Disease
DX: I20.9 Angina pectoris, unspecified (principal); E11.9 Type 2 diabetes mellitus without complications; E78.2 Mixed hyperlipidemia; Z79.84 Long term (current) use of oral hypoglycemic drugs; I10 Essential (primary) hypertension; I44.4 Left anterior fascicular block; I49.3 Ventricular premature depolarization; G47.33 Obstructive sleep apnea (adult) (pediatric); Z99.89 Dependence on other enabling machines and devices
CPT/HCPCS: 93458; 99152; 99153; J7030; Q9967; C1769; C1894

== ENCOUNTER → 2021-10-04 | Outpatient (CLI) | payer BC, SELFPAY ==
[2021-10-04 15:33] LABS: Absolute Lymphocyte Count 2.25 X10^3/uL (0.83-4.51); Absolute Neutrophil Count 7.7 X10^3/uL (2.0-7.7); Basophil# 0.02 X10^3/uL; Basophil% 0.2 % (0-1); Eosinophil# 0.24 X10^3/uL; Eosinophils% 2.1 % (0-5); Hematocrit 42.4 % (40-54); Hemoglobin 13.7 g/dL (13.0-16.5); Lymphocyte # 2.25 X10^3/ul (0.83-4.51); Lymphocyte % 19.4 % (19-41); Mean Corp Hgb Conc 32.3 g/dL (32-36); Mean Corpuscular Hgb 27.9 pg (27.0-32.0); Mean Corpuscular Volume 86.4 fL (80-94); Monocyte% 11.2 % (0-10); NRBC Flagged by Analyzer 0 % (0-5); Neutrophil # 7.72 X10^3/uL (2.7-7.7); Neutrophil % 66.7 % (47-70); Platelet Count 282 K/mm3 (150-450); RBC Distribution Width CV 13.8 % (11.6-14.6); RBC Distribution Width SD 43.9 fl (35.1-43.9); Red Blood Count 4.91 M/mm3 (4.6-6.2); White Blood Count 11.6 K/mm3 (4.4-11.0)
[2021-10-04 15:48] LABS: Vitamin B12 280 pg/mL (211-911); Vitamin D,25 Hydroxy 41.8 ng/mL
[2021-10-04 15:50] LABS: Anion Gap 7 (5-15); BUN 13 mg/dL (7-18); Chloride 105 mmol/L (98-107); Creatinine, Serum 1.18 mg/dL (0.70-1.30); EST Glomerular Filtration Rate 69 mL/min (>60); Est Glom Filt Rate - Afr Amer 83 mL/min (>60); Glucose 165 mg/dL (74-106); Potassium 3.5 mmol/L (3.5-5.1); Sodium Level 137 mmol/L (136-145)
== END | disposition home or self-care (01) ==
LOC: MFPLAB 12:17
PROVIDERS: PCP Family Medicine; Visit Provider Family Medicine
DX: R19.7 Diarrhea, unspecified (principal)
CPT/HCPCS: 36415; 80048; 82306; 82607; 85025; 87177; 87209; 87493; 87506

== ENCOUNTER → 2022-02-07 | Outpatient (CLI) | payer BC, SELFPAY ==
[2022-02-07 10:50] LABS: Vitamin B12 470 pg/mL (211-911); Vitamin D,25 Hydroxy 39.7 ng/mL
[2022-02-07 10:56] LABS: ALB/GLOB Ratio 0.9 RATIO (0.9-2.4); AST(SGOT) 23 U/L (15-37); Alanine Aminotransfer ALT/SGPT 84 U/L (16-61); Albumin, Serum 3.7 g/dL (3.2-5.0); Alkaline Phosphatase 74 U/L (45-117); Anion Gap 5 (5-15); BUN 11 mg/dL (7-18); BUN/Creat Ratio 10.4 RATIO (10-20); Calcium,Total 9.2 mg/dL (8.5-10.1); Chloride 107 mmol/L (98-107); Creatinine, Serum 1.06 mg/dL (0.70-1.30); EST Glomerular Filtration Rate 78 mL/min (>60); Est Glom Filt Rate - Afr Amer 94 mL/min (>60); Glucose 154 mg/dL (74-106); Potassium 4.2 mmol/L (3.5-5.1); Protein, Total 7.7 g/dL (6.4-8.2); Sodium Level 141 mmol/L (136-145); Thyroid Stim Hormone (TSH) 1.58 uIU/mL (0.358-3.74)
== END | disposition home or self-care (01) ==
LOC: MFPLAB 09:25
PROVIDERS: PCP Family Medicine; Referring Provider Family Medicine; Visit Provider Family Medicine
DX: E55.9 Vitamin D deficiency, unspecified (principal); E11.9 Type 2 diabetes mellitus without complications; E53.8 Deficiency of other specified B group vitamins; Z12.5 Encounter for screening for malignant neoplasm of prostate
CPT/HCPCS: 36415; 80053; 82306; 82607; 84403; 84443

== ENCOUNTER 2022-06-14 06:50 | Day surgery (SDC) | payer BC, SELFPAY ==
[2022-06-14] VITALS (7 sets, daily range): BP systolic 107–129; BP diastolic 66–80; PULSE 84–93; RESP 16–18; TEMP 36.6–36.8; O2SAT 94–99; BMI 36.0
[2022-06-14] MEDS: Lactated Ringers 1,000 ML 15 ML IV (07:00)
--- NOTE | 2022-06-14 07:30 | HP.PCM_ITS ---
[facility] - General General Date of Admission: 06/14/22 Date of Service: 06/14/22 Chief Complaint: Screening colonoscopy [facility] Narrative IRIS OLEARY, is a 52 M who presents today for screening colonoscopy. He has a past medical history of coronary artery disease, MARKY, hyperlipidemia, type 2 diabetes and hypertension. He is not having any problems such as chest pain or shortness of breath at this time. He denies any nausea, vomiting or diarrhea. He is here for screening colonoscopy. [facility] Medical History (Updated 06/13/22 @ 11:59 by Norma Evans) Angina pectoris Cardiology follow-up encounter Chronic cough CPAP (continuous positive airway pressure) dependence CPAP (continuous positive airway pressure) dependence Diabetes Diabetes Diverticulitis Essential hypertension Gastric reflux GERD (gastroesophageal reflux disease) High cholesterol High cholesterol History of diverticulitis History of echocardiogram History of irregular heartbeat History of left heart catheterization (LHC) (~09/23/21) History of steroid therapy History of stress test HTN (hypertension) Hyperlipemia Hypertension Incarcerated umbilical hernia Mixed hyperlipidemia Non-smoker MARKY (obstructive sleep apnea) Shortness of breath on exertion Sleep apnea Sleep apnea Type 2 diabetes mellitus Wears contact lenses Wears glasses Home Medications atorvastatin 20 mg tablet 20 mg PO DAILY cholesterol 06/23/17 [History Last Taken 09/26/20] metformin 750 mg tablet,extended release 24 hr (Glucophage XR) 750 mg PO BID 06/23/17 [History Last Taken 09/22/21] aspirin 81 mg tablet,delayed release 81 mg PO DAILY@0630 health maintenance 03/25/20 [History Last Taken 09/23/21] glimepiride 4 mg tablet 4 mg PO BID dm 03/25/20 [History Last Taken 09/26/20] lisinopril 10 mg tablet 10 mg PO DAILY bp 03/25/20 [History Last Taken 09/23/21] pioglitazone 15 mg tablet 15 mg PO DAILY dm 03/25/20 [History Last Taken 09/26/20] cholecalciferol (vitamin D3) 50 mcg (2,000 unit) tablet 50 mcg PO DAILY 09/06/21 [History Last Taken Unknown] omeprazole 40 mg capsule,delayed release 40 mg PO DAILY 09/06/21 [History Last Taken Unknown] dulaglutide 3 mg/0.5 mL subcutaneous pen injector (Trulicity) 3 mg subcut TH 06/13/22 [History Last Taken Unknown] famotidine 20 mg tablet (Pepcid AC) 20 mg PO QHS 06/13/22 [History Last Taken Unknown] loratadine 10 mg tablet (Claritin) 10 mg PO DAILY 06/13/22 [History Last Taken Unknown] multivitamin 1 tab PO DAILY 06/13/22 [History Last Taken Unknown] Allergy/AdvReac Type Severity Reaction Status Date / Time No Known Allergies Allergy Verified 06/14/22 07:14 Family History (Updated 05/22/22 @ 08:34 by Sussy Roach) Father Diabetes CAD (coronary artery disease) Grandfather Diabetes Grandmother Diabetes Mother Diverticulitis Surgical History (Updated 06/13/22 @ 11:59 by Norma Evans) History of colonoscopy History of hernia repair Social History Smoking Status: Never smoker alcohol intake: current details: occasional substance use type: does not use caffeine: Yes Type: coffee Number of servings: 3 ROS Constitutional Constitutional: Denies anorexia or chills Eyes Eyes: Reports systems reviewed and no addt'l complaints, except as documented Cardiovascular Cardiovascular: Reports systems reviewed and no addt'l complaints, except as documented Respiratory/Chest Respiratory/Chest: Reports systems reviewed and no addt'l complaints, except as documented Gastrointestinal Gastrointestinal: Reports systems reviewed and no addt'l complaints, except as documented Genitourinary Genitourinary: Reports systems reviewed and no addt'l complaints, except as documented Musculoskeletal Musculoskeletal: Reports systems reviewed and no addt'l complaints, except as documented Vital Signs Vital Signs Vital Signs: 06/14/22 07:15 06/14/22 07:15 Temperature 97.8 F Temperature Source Temporal Pulse Rate 92 Respiratory Rate 18 Respiratory Pattern Normal Blood Pressure 129/80 H Blood Pressure Mean 96 Blood Pressure Source Monitor Blood Pressure Position Semi-Fowlers Blood Pressure Location Left Arm Pulse Ox 99 Oxygen Delivery Method Room Air Weight Weight: 251 lb 5.231 oz Body Mass Index (BMI) 36.0 Physical Exam Const alert and oriented x3 General Appearance: cooperative Orientation / Consciousness: oriented to person HEENT normocephalic and head/scalp atraumatic Head and Scalp: normal to inspection Face and Sinus: face symmetric Nose: external nose normal Mouth: oral and palatal mucosa normal Eyes PERRL and EOMs intact bilaterally General Eye: normal appearance of both eyes Neck full ROM General: normal visual inspection Lymph Lymphatic: no lymphadenopathy noted Chest inspection of chest normal and palpation of chest normal Chest: symmetrical chest wall rise Resp clear to auscultation bilaterally Effort and Inspection: able to speak in complete sentences Cardio regular rate Rate: regular rate Rhythm: regular rhythm GI non-distended Palpation: tender periumbilical (Patient has an incarcerated strangulated umbilical hernia.) Percussion: normal to percussion Rectal Exam: deferred Neuro Speech: speech normal Gait (Neuro): normal gait Assessment & Plan Assessment/Plan (1) Encounter for screening for malignant neoplasm of colon: PLAN: He will undergo screening colonoscopy. He was explained alternatives, risk, benefits including not withstanding bleeding, infection, sepsis, perforation, need for emergent surgery . He will have an ASA of 1.
[2022-06-14 07:45] LABS: Bedside Glucose 180 mg/dL (74-106)
--- NOTE | 2022-06-14 08:00 | COLBX_PTH ---
PATIENT: IRIS OLEARY LOC: [facility] U#:[id number] AGE/SX: 52/M ROOM: RE06/14/[address]: Dr. Juancho Pacheco DO : 1970 BED: DIS: 06/14/2022 SPEC #: [id number] RECD: 06/14/22 11:50 STATUS: MAGALYS EDDIE #: [id number] JENNIFER: 06/14/22 08:[address]: Juancho Pacheco DEPT: SURGICAL PATHOLOGY RECD BY: Alix Rodriguez ENTERED: 06/14/22 13:48 SP TYPE: COLON BX OT DR: Dr. Reynaldo Vigil MD Tissues: A - SPLENIC FLEXURE B - Sigmoid colon biopsy Procedures: Surgery Specimen Level IV HEADER OPERATION: Colonoscopy ? open access (MAC) and polypectomy PRE-OP DIAGNOSIS: Screening TISSUE SUBMITTED: A ? Splenic flexure polyp, B ? Sigmoid polyp MICROSCOPIC DIAGNOSIS A. Colonic polyp at splenic flexure, biopsy: Tubular adenoma. B. Sigmoid colon polyp, biopsy: Tubular adenoma. AM:cecily 06/15/2022 MICROSCOPIC DESCRIPTION Slides are reviewed. GROSS DESCRIPTION A - Received in fixative is one container labeled with the patient's name and designated splenic flexure polyp. The specimen consists of one irregular fragment of light hartman soft tissue that measures 0.3 x 0.3 x 0.1 cm. The specimen is totally submitted in one cassette. B - Received in fixative is one container labeled with the patient's name and designated sigmoid polyp. The specimen consists of two irregular fragments of light hartman soft tissue that in aggregate measure 0.6 x 0.3 x 0.1 cm. The specimen is totally submitted in one cassette. / SJ:cecily 06/14/2022 TC:5 [facility]: [id number] x2
--- NOTE | 2022-06-14 08:31 | OP.COLON_ITS ---
Patient Name: Enzo Alvarez Procedure Date: 06/14/2022 7:59 AM Date of : 1970 Age: 52 Procedure: Colonoscopy Indications: Personal history of colonic polyps Providers: Juancho Pacheco DO Medicines: Monitored Anesthesia Care Patient Profile: This is a 52 year old male. Refer to note in patient chart for documentation of history and physical. Last Colonoscopy: 5 years ago. Complications: No immediate complications. Procedure: Pre-Anesthesia Assessment: - Prior to the procedure, a History and Physical was performed, and patient medications and allergies were reviewed. The patient is competent. The risks and benefits of the procedure and the sedation options and risks were discussed with the patient. All questions were answered and informed consent was obtained. Patient identification and proposed procedure were verified by the physician. Mental Status Examination: normal. Airway Examination: normal oropharyngeal airway and neck mobility. Respiratory Examination: clear to auscultation. CV Examination: normal. Prophylactic Antibiotics: The patient does not require prophylactic antibiotics. Prior Anticoagulants: The patient has taken no previous anticoagulant or antiplatelet agents. After reviewing the risks and benefits, the patient was deemed in satisfactory condition to undergo the procedure. The anesthesia plan was to use monitored anesthesia care (MAC). Immediately prior to administration of medications, the patient was re-assessed for adequacy to receive sedatives. The heart rate, respiratory rate, oxygen saturations, blood pressure, adequacy of pulmonary ventilation, and response to care were monitored throughout the procedure. The physical status of the patient was re-assessed after the procedure. After I obtained informed consent, the scope was passed under direct vision. Throughout the procedure, the patient's blood pressure, pulse, and oxygen saturations were monitored continuously. The colonoscope was introduced through the anus and advanced to the cecum, identified by appendiceal orifice and ileocecal valve. The ileocecal valve, appendiceal orifice, and rectum were photographed. Scope In: 8:05:11 AM Scope Withdrawal Time 0 hours 13 minutes 28 seconds Scope Out: 8:23:46 AM Total Procedure Duration Time 0 hours 18 minutes 35 seconds Findings: A 5 mm polyp was found in the sigmoid colon splenic flexure. The polyp was sessile. The polyp was removed with a hot snare. Resection and retrieval were complete. Verification of patient identification for the specimen was done. Estimated blood loss was minimal. Many small and large-mouthed diverticula were found in the recto-sigmoid colon, sigmoid colon, descending colon, transverse colon and hepatic flexure. The exam was otherwise without abnormality on direct and retroflexion views. Impression: - One 5 mm polyp in the sigmoid colon at the splenic flexure, removed with a hot snare. Resected and retrieved. - Diverticulosis in the recto-sigmoid colon, in the sigmoid colon, in the descending colon, in the transverse colon and at the hepatic flexure. - The examination was otherwise normal on direct and retroflexion views. Recommendation: - Discharge patient to home. - Resume previous diet. - Continue present medications. - Await pathology results. - Repeat colonoscopy in 5 years for surveillance. Procedure Code(s): --- Professional --- 40124, Colonoscopy, flexible; with removal of tumor(s), polyp(s), or other lesion(s) by snare technique CPT copyright 2017 [employer]. All rights reserved. The codes documented in this report are preliminary and upon residential electrician review may be revised to meet current compliance requirements. Juancho Pacheco DO 06/14/2022 8:30:59 AM This report has been signed electronically. Number of Addenda: 0 Note Initiated On: 06/14/2022 7:59 AM
--- NOTE | 2022-06-14 08:32 | OP.CCLET_ITS ---
06/14/2022 Olivier Vigil [address] [place] [address] Re : Colonoscopy procedure for Enzo Alvarez Dear Dr. Vigil This procedure was performed on Tuesday, June 14, 2022. My impressions and recommendations are as follows: Impressions : - One 5 mm polyp in the sigmoid colon at the splenic flexure, removed with a hot snare. Resected and retrieved. - Diverticulosis in the recto-sigmoid colon, in the sigmoid colon, in the descending colon, in the transverse colon and at the hepatic flexure. - The examination was otherwise normal on direct and retroflexion views. Recommendations : - Discharge patient to home. - Resume previous diet. - Continue present medications. - Await pathology results. - Repeat colonoscopy in 5 years for surveillance. My findings are described in the full procedure note, which is enclosed. If I can be of further assistance, please feel free to contact me at . Sincerely, Juancho Pacheco, 06/14/2022 8:30:59 AM This report has been signed electronically.
== END 2022-06-14 09:06 | disposition home or self-care (01) ==
LOC: EN 06:51 → AC 06:53
PROVIDERS: PCP Family Medicine; Referring Provider Family Medicine; Visit Provider Internal Medicine Gastroenterology
PROC: 0DJD8ZZ Inspection of Lower Intestinal Tract, Via Natural or Artificial Opening Endoscopic (ICD-10-PCS; CPT 45378; principal; 2022-06-14 07:55)
DX: Z12.11 Encounter for screening for malignant neoplasm of colon (principal); E11.9 Type 2 diabetes mellitus without complications; Z79.84 Long term (current) use of oral hypoglycemic drugs; Z86.010 Personal history of colon polyps; I10 Essential (primary) hypertension; Z79.82 Long term (current) use of aspirin; K57.30 Diverticulosis of large intestine without perforation or abscess without bleeding; I25.10 Atherosclerotic heart disease of native coronary artery without angina pectoris; K63.5 Polyp of colon; G47.33 Obstructive sleep apnea (adult) (pediatric); E78.5 Hyperlipidemia, unspecified
CPT/HCPCS: 45385; 82962; 88305; J7120; J2405

== ENCOUNTER → 2022-08-29 | Outpatient (CLI) | payer BC, SELFPAY | END | disposition home or self-care (01) | LOC: MFPLAB 08:55 | PROVIDERS: PCP Family Medicine; Visit Provider Family Medicine | DX: Z00.00 Encounter for general adult medical examination without abnormal findings (principal) ==

== ENCOUNTER → 2023-02-05 | Outpatient (CLI) | payer BC, SELFPAY ==
[2023-02-05 11:02] LABS: Vitamin B12 525 pg/mL (211-911); Vitamin D,25 Hydroxy 53.2 ng/mL
[2023-02-05 11:31] LABS: AST(SGOT) 22 U/L (15-37); Alanine Aminotransfer ALT/SGPT 58 U/L (16-61); Albumin, Serum 3.8 g/dL (3.2-5.0); Alkaline Phosphatase 83 U/L (45-117); Anion Gap 7 (5-15); BUN 14 mg/dL (7-18); BUN/Creat Ratio 14.7 RATIO (10-20); Calcium,Total 9.1 mg/dL (8.5-10.1); Chloride 104 mmol/L (98-107); Cholesterol 114 mg/dL (200); Creatinine, Serum 0.95 mg/dL (0.70-1.30); EST Glomerular Filtration Rate 87 mL/min (>60); Est Glom Filt Rate - Afr Amer 106 mL/min (>60); Globulin 3.8 g/dL (2.2-4.2); Glucose 144 mg/dL (74-106); High Density Lipoprotein 45 mg/dL; Potassium 4.4 mmol/L (3.5-5.1); Protein, Total 7.6 g/dL (6.4-8.2); Sodium Level 135 mmol/L (136-145); Thyroid Stim Hormone (TSH) 1.69 uIU/mL (0.358-3.74); Triglycerides 170 mg/dL; Very Low Density Lipoprotein 34 mg/dL (5-40)
== END | disposition home or self-care (01) ==
LOC: MFPLAB 08:13
PROVIDERS: PCP Family Medicine; Visit Provider Family Medicine
DX: E55.9 Vitamin D deficiency, unspecified (principal); E11.9 Type 2 diabetes mellitus without complications; E53.8 Deficiency of other specified B group vitamins
CPT/HCPCS: 36415; 80053; 80061; 82306; 82607; 84403; 84443

== ENCOUNTER → 2023-10-30 | Outpatient (CLI) | payer BC, SELFPAY ==
[2023-10-30 10:54] LABS: AST(SGOT) 16 U/L (15-37); Alanine Aminotransfer ALT/SGPT 37 U/L (16-61); Albumin, Serum 3.6 g/dL (3.2-5.0); Alkaline Phosphatase 70 U/L (45-117); Anion Gap 8 (5-15); BUN 11 mg/dL (7-18); BUN/Creat Ratio 11.2 RATIO (10-20); Calcium,Total 9.5 mg/dL (8.5-10.1); Chloride 104 mmol/L (98-107); Cholesterol 126 mg/dL (200); Creatinine, Serum 0.98 mg/dL (0.70-1.30); EST Glomerular Filtration Rate 84 mL/min (>60); Est Glom Filt Rate - Afr Amer 102 mL/min (>60); Globulin 3.7 g/dL (2.2-4.2); Glucose 243 mg/dL (74-106); High Density Lipoprotein 41 mg/dL; Potassium 4.2 mmol/L (3.5-5.1); Protein, Total 7.3 g/dL (6.4-8.2); Sodium Level 137 mmol/L (136-145); Triglycerides 112 mg/dL; Very Low Density Lipoprotein 22 mg/dL (5-40)
== END | disposition home or self-care (01) ==
LOC: MFPLAB 08:21
PROVIDERS: PCP Family Medicine; Visit Provider Family Medicine
DX: E11.65 Type 2 diabetes mellitus with hyperglycemia (principal)
CPT/HCPCS: 36415; 80053; 80061

== ENCOUNTER → 2024-03-04 | Outpatient (CLI) | payer OTHER, SELFPAY ==
[2024-03-04 08:36] LABS: Bacteria 0 SEEN /hpf (None Seen); Mucous, Urine 0 SEEN /hpf (<or=2+); Red Blood Cells-Urine 0 SEEN /hpf (0-5); Squamous Epithelial Cells - UA 0 SEEN /hpf (0-5); White Blood Cells 0 SEEN /hpf (0-5)
[2024-03-04 09:59] LABS: Color, Urine Yellow (Yellow); Glucose, Dipstick 1000 mg/dl (Normal); Ketone-Dipstick Negative (Negative); Leukocyte Esterase-Dipstick Negative /ul (Negative); Nitrite-Dipstick Negative (Negative); Occult Blood-Urine Negative /ul (Negative); Protein-Dipstick Negative (Negative); Urine Bilirubin Dipstick Negative (Negative); Urine Clarity Clear (Clear); Urine Urobilinogen Normal (Normal)
[2024-03-04 10:24] LABS: Vitamin B12 642 pg/mL (211-911); Vitamin D,25 Hydroxy 39.5 ng/mL
[2024-03-04 10:26] LABS: ALB/GLOB Ratio 1.1 RATIO (0.9-2.4); AST(SGOT) 19 U/L (15-37); Alanine Aminotransfer ALT/SGPT 51 U/L (16-61); Albumin, Serum 4.1 g/dL (3.2-5.0); Alkaline Phosphatase 75 U/L (45-117); Anion Gap 6 (5-15); BUN 13 mg/dL (7-18); BUN/Creat Ratio 12.5 RATIO (10-20); Calcium,Total 9.6 mg/dL (8.5-10.1); Chloride 105 mmol/L (98-107); Cholesterol 126 mg/dL (200); Creatinine, Serum 1.04 mg/dL (0.70-1.30); EST Glomerular Filtration Rate 79 mL/min (>60); Est Glom Filt Rate - Afr Amer 95 mL/min (>60); Globulin 3.9 g/dL (2.2-4.2); Glucose 129 mg/dL (74-106); High Density Lipoprotein 48 mg/dL; PSA,Total - Annual Screen 0.52 ng/mL (0.00-4.00); Potassium 4.4 mmol/L (3.5-5.1); Sodium Level 138 mmol/L (136-145); Triglycerides 111 mg/dL; Very Low Density Lipoprotein 22 mg/dL (5-40)
== END | disposition home or self-care (01) ==
LOC: MTLAB 08:19
PROVIDERS: PCP Family Medicine; Referring Provider Family Medicine; Visit Provider Family Medicine
DX: Z00.00 Encounter for general adult medical examination without abnormal findings (principal); E11.59 Type 2 diabetes mellitus with other circulatory complications; E53.8 Deficiency of other specified B group vitamins; Z12.5 Encounter for screening for malignant neoplasm of prostate; E55.9 Vitamin D deficiency, unspecified
CPT/HCPCS: 36415; 80053; 80061; 81001; 82306; 82607; 84153; 84403; 84443; G0103

== ENCOUNTER → 2024-09-26 | Outpatient (CLI) | payer OTHER, SELFPAY ==
[2024-09-26 11:56] LABS: ALB/GLOB Ratio 1.4 RATIO (0.9-2.4); AST(SGOT) 24 U/L (<=37); Alanine Aminotransfer ALT/SGPT 33 U/L (<=46); Albumin, Serum 4.5 g/dL (3.5-5.0); Alkaline Phosphatase 89 U/L (40-129); Anion Gap 13 (5-15); BUN 20 mg/dL (4-19); BUN/Creat Ratio 18.3 RATIO (10-20); Calcium,Total 9.9 mg/dL (7.6-11.0); Carbon Dioxide 21.2 mmol/L (21.0-32.0); Chloride 103 mmol/L (98-108); Creatinine, Serum 1.07 mg/dL (0.70-1.20); EST Glomerular Filtration Rate 82 (>60); Globulin 3.2 g/dL (2.2-4.2); Glucose 194 mg/dL (70-99); Potassium 4.1 mmol/L (3.3-5.1); Protein, Total 7.7 g/dL (5.9-8.4); Sodium Level 137 mmol/L (133-145); Total Bilirubin 0.35 mg/dL (0.00-1.30)
== END | disposition home or self-care (01) ==
LOC: LAB 10:43
PROVIDERS: PCP Family Medicine; Referring Provider Podiatrist; Visit Provider Podiatrist
DX: B35.1 Tinea unguium (principal)
CPT/HCPCS: 36415; 80053

== ENCOUNTER → 2024-11-10 | Outpatient (CLI) | payer OTHER, SELFPAY ==
[2024-11-10 12:23] LABS: AST(SGOT) 21 U/L (<=37); Alanine Aminotransfer ALT/SGPT 29 U/L (<=46)
== END | disposition home or self-care (01) ==
LOC: LAB 10:34
PROVIDERS: PCP Family Medicine; Referring Provider Podiatrist; Visit Provider Podiatrist
DX: B35.1 Tinea unguium (principal)
CPT/HCPCS: 36415; 84450; 84460